=== PATIENT | male | born 1975 | race Caucasian/White ===

== ENCOUNTER 2018-09-30 14:45 | Inpatient (IN) | payer OTHER ==
[~2018-09-30] VITALS: Ht 182.9 cm; Wt 84.5 kg
[2018-09-30] MEDS ORDERED: GABA600 PO (15:01)
[2018-09-30] MEDS ORDERED: B-1100 MG PO (15:04)
[2018-09-30] MEDS ORDERED: THERA1 EACH PO (15:05)
[2018-09-30] MEDS ORDERED: MELATONIN5 M1 (15:06)
[2018-09-30 15:21] LABS: BASOPHILS ABSOLUTE AUTO 0.01 K/mm3 (0.00-0.23); BASOPHILS PERCENT AUTO 0 % (0-2); EOSINOPHILS ABSOLUTE AUTO 0.02 K/mm3 (0.00-0.68); EOSINOPHILS PERCENT AUTO 1 % (0-6); Hematocrit 29.4 % (37.0-53.0); IMMATURE GRAN PERCENT AUTO 0 % (0-1); LYMPHOCYTES ABSOLUTE AUTO 0.43 K/mm3 (0.84-5.20); LYMPHOCYTES PERCENT AUTO 18 % (21-46); MONOCYTES ABSOLUTE AUTO 0.45 K/mm3 (0.16-1.47); MONOCYTES PERCENT AUTO 18 % (4-13); Mean Corpuscular HGB 29.9 pg (26.0-34.0); Mean Corpuscular HGB Conc 30.6 g/dL (31.5-36.5); Mean Corpuscular Volume 98 fL (80-100); NEUTROPHILS ABSOLUTE AUTO 1.53 K/mm3 (1.96-9.15); NEUTROPHILS PERCENT AUTO 63 % (41-73); RDW Coefficient Variation 22.6 % (11.7-14.2); RDW Standard Deviation 82.8 fL (35.1-46.3); Red Blood Cell Count 3.01 M/mm3 (4.30-5.90); White Blood Cell Count 2.44 K/mm3 (4.00-11.30)
[2018-09-30 15:35] LABS: Platelet Count 36 K/mm3 (150-400)
[2018-09-30 15:44] LABS: International Normalized Ratio 1.58; Prothrombin Time Results 16.1 Sec (9.7-11.5)
[2018-09-30 15:45] LABS: Alanine Aminotransfer (ALT/SGP 39 U/L (12-78); Albumin, Blood 2.5 g/dL (3.4-5.0); Albumin/Globulin Ratio 0.5 (0.8-1.8); Alk Phos 110 U/L (50-136); Anion Gap 4 mmol/L (6-16); Aspartate Aminotrans (AST/SGOT 86 U/L (12-37); Bilirubin, Total 3.2 mg/dL (0.1-1.0); Blood Urea Nitrogen 9 mg/dL (8-24); Bun/Creatinine Ratio 15.1 (12.0-20.0); CO2, Blood 27 mmol/L (21-32); Calcium, Blood 8.6 mg/dL (8.5-10.1); Chloride, Blood 105 mmol/L (98-108); Globulin, Blood 5.3 g/dL (2.2-4.0); Glomerular Filtration Rate >60 (60-); Glucose, Blood 125 mg/dL (70-99); Sodium, Blood 136 mmol/L (136-145); Total Protein, Blood 7.8 g/dL (6.4-8.2)
[2018-09-30 16:53] LABS: Source, Urine Clean Catch
[2018-09-30 16:57] LABS: Appearance, Urine Clear (Clear); Bilirubin, Urine Neg (Neg); Blood, Urine Neg (Neg); Color, Urine Yellow (P-Yellow); Glucose Qualitative, Urine Neg (Neg); Ketones, Urine Neg (Neg); Leukocyte Esterase, Urine Neg (Neg); Nitrite, Urine Neg (Neg); Protein, Urine Neg (Neg); Specific Gravity, Urine 1.015 (1.003-1.022); Urobilinogen, Urine NORM (Normal)
[2018-09-30] MEDS ORDERED: OMEPRAZOLE MAGN20 MG PO (18:02)
[2018-09-30] MEDS ORDERED: FOLI1 PO (18:02)
[2018-09-30] MEDS ORDERED: MAGOXI400 PO (18:12)
[2018-09-30 19:20] LABS: BASOPHILS ABSOLUTE AUTO 0.01 K/mm3 (0.00-0.23); BASOPHILS PERCENT AUTO 0 % (0-2); EOSINOPHILS ABSOLUTE AUTO 0.02 K/mm3 (0.00-0.68); EOSINOPHILS PERCENT AUTO 1 % (0-6); Hematocrit 30.2 % (37.0-53.0); Hemoglobin 9.1 g/dL (13.5-17.5); IMMATURE GRAN PERCENT AUTO 0 % (0-1); LYMPHOCYTES ABSOLUTE AUTO 0.44 K/mm3 (0.84-5.20); LYMPHOCYTES PERCENT AUTO 18 % (21-46); MONOCYTES ABSOLUTE AUTO 0.43 K/mm3 (0.16-1.47); MONOCYTES PERCENT AUTO 17 % (4-13); Mean Corpuscular HGB Conc 30.1 g/dL (31.5-36.5); Mean Corpuscular Volume 100 fL (80-100); NEUTROPHILS ABSOLUTE AUTO 1.58 K/mm3 (1.96-9.15); NEUTROPHILS PERCENT AUTO 64 % (41-73); RDW Coefficient Variation 22.6 % (11.7-14.2); RDW Standard Deviation 83.2 fL (35.1-46.3); Red Blood Cell Count 3.03 M/mm3 (4.30-5.90); White Blood Cell Count 2.48 K/mm3 (4.00-11.30)
[2018-09-30 19:34] LABS: Platelet Count 38 K/mm3 (150-400)
--- NOTE | 2018-09-30 21:54 | NUR ---
ADMISSION: PATIENT ARRIVED TO ICU2 AT APPROX 1905 VIA GURNEY FROM ER. PATIENT ALERT TO TIME BUT NOT PLACE, SLURRED SPEECH AND TRYING TO GET OOB. PATIENT ABLE TO PARTICIPATE WITH ADMISSION BUT CONFUSION INCREASING THROUGHOUT PROCESS. ADMISSION AND ASSESSMENT COMPLETED, PATIENT ORIENTED TO ROOM, CALL LIGHT AND HOSPITAL POLICIES.
--- NOTE | 2018-09-30 21:57 | NUR ---
WITHDRAWL: 1950 PATIENT NOW EXPERIENCING INCREASING CONFUSION, STATING HE IS IN [place] AND THEN GRANTS PASS, PATIENT UNABLE TO DO SERIAL ADDITION AND AGGITATION AND ANXIETY INCREASING. SEE ESCALATING BEHAVIOR ON CIWA SCALE. PATIENT CONTINUALLY TRYING TO GET OOB. APPROX 2100 PATIENT NOW CUSING AND SLURRING WORDS, HIT STAFF IN THE FACE WITH KNUCKLES, VERY ANXIOUS AND AGGITATED BUT UNAWARE OF ACTIONS. MD NOTIFIED, ORDERS RECIEVED, RESTRAINTS INITIATED, MEDICATIONS ADMINISTERED PER MD ORDERS. MONITORING VS, AND BEHAVIOR VERY CLOSELY AND FREQUENTLY ([id number]), SEE RESTRAINT AND VS LOGS.
[2018-10-01 03:55] LABS: International Normalized Ratio 1.61; Prothrombin Time Results 16.3 Sec (9.7-11.5)
[2018-10-01 04:04] LABS: Alanine Aminotransfer (ALT/SGP 38 U/L (12-78); Albumin, Blood 2.6 g/dL (3.4-5.0); Albumin/Globulin Ratio 0.5 (0.8-1.8); Alk Phos 113 U/L (50-136); Anion Gap 7 mmol/L (6-16); Aspartate Aminotrans (AST/SGOT 83 U/L (12-37); Bilirubin, Direct 2.6 mg/dL (0.0-0.3); Bilirubin, Indirect 1.3 mg/dL (0.1-0.7); Bilirubin, Total 3.9 mg/dL (0.1-1.0); Blood Urea Nitrogen 8 mg/dL (8-24); CO2, Blood 24 mmol/L (21-32); Calcium, Blood 8.7 mg/dL (8.5-10.1); Chloride, Blood 114 mmol/L (98-108); Creatinine, Blood 0.47 mg/dL (0.60-1.20); Globulin, Blood 5.3 g/dL (2.2-4.0); Glomerular Filtration Rate >60 (60-); Glucose, Blood 139 mg/dL (70-99); Magnesium, Blood 2.1 mg/dL (1.6-2.4); Phosphorus, Blood 4.4 mg/dL (2.5-4.9); Potassium, Blood 3.8 mmol/L (3.5-5.5); Sodium, Blood 145 mmol/L (136-145); Total Protein, Blood 7.9 g/dL (6.4-8.2)
--- NOTE | 2018-10-01 05:51 | NUR ---
SHIFT SUMMARY: PATIENT ON PREXEDEX AT 0.5 WITH STABLE VS, ORAL AND SKIN CARE DONE, EYE CARE AND LINEN CHANGE COMPLETED. PATIENT HAS INTERMITTENT EPISODES OF ANGRY OUTBURSTS AND AGGITATION IN BETWEEN SLEEPING. BED LOW AND LOCKED WITH EXIT ALARM ON, 1L NC ADDED FOR PATIENT D/T SOME APNEA LIKE EPISODES WHILE SLEEPING. O2 MAINTAINED ABOVE 90%. CALL LIGHT WITHIN REACH, MONITORING CLOSELY.
--- NOTE | 2018-10-01 07:15 | NUR ---
RECEIVED REPORT FROM PENNIE BEAR, AND ASSUMED CARE OF PT.
--- NOTE | 2018-10-01 08:00 | NUR ---
DR. GOLD AT BEDSIDE FOR EVALUATION.
--- NOTE | 2018-10-01 08:48 | NUR ---
NURSING SUMMARY SLEEPY, WAKES EASILY TO VOICE, CONFUSED, MUMBLING, CUSSING, TREMORS, ATAXIA, AUDITORY AND VISUAL HALLUCINATIONS, PULLING AT THE BILATERAL WRIST RESTRAINTS, CIWA = 12, DOES NOT FOLLOW DIRECTIONS, UNABLE TO CHEW/SWALLOW FOOD, HELD FIRST BITE IN MOUTH, REMOVED THE FOOD AND WILL REASSESS SWALLOWING WHEN PT MORE AWAKE/ALERT. PRECEDEX DRIP INFUSING AT 0.5 MCG/KG/HR. SB - SR ON MONITOR, HR PRIMARILY IN THE 50'S AND 60'S, INCREASES TO 110'S WITH AGITATION AND ATTEMPTS TO PULL OFF THE RESTRAINTS. BP'S WNL. LUNGS CLEAR, DIMINISHED AT THE BASES, 1L 02 NC, SATS 94-99%. SEIZURE PADS IN PLACE. PLACED SCD'S ON PT. ABDOMEN WITH MILD DISTENTION, SOFT, NON-TENDER, HYPERACTIVE BOWEL SOUNDS IN ALL FOUR QUADS. PRIEST IN PLACE DRAINING CLIVE URINE. PROVIDED MOUTH CARE. DR. GOLD CAME TO SEE PT, ADVISED OF ELEVATED AMMONIA AND LOW PLATELETS. BILATERAL AC IV SITES INFUSING PRECEDEX AND NS AT TKO.
--- NOTE | 2018-10-01 13:45 | NUR ---
PRECEDEX TURNED DOWN TO 0.4 MCG/KG/HR AROUND 1100. AT THIS TIME, PT YELLING/CUSSING, ATTEMPTING TO BREAK OUT OF THE SOFT WRIST RESTRAINTS. TURNED PRECEDEX UP TO 0.5 MCG/KG/HR.
[2018-10-01 18:37] LABS: BASOPHILS ABSOLUTE AUTO 0.01 K/mm3 (0.00-0.23); BASOPHILS PERCENT AUTO 0 % (0-2); EOSINOPHILS ABSOLUTE AUTO 0.02 K/mm3 (0.00-0.68); EOSINOPHILS PERCENT AUTO 1 % (0-6); Hematocrit 31.5 % (37.0-53.0); Hemoglobin 9.6 g/dL (13.5-17.5); IMMATURE GRAN ABSOLUTE AUTO 0.01 K/mm3 (0.00-0.10); IMMATURE GRAN PERCENT AUTO 0 % (0-1); LYMPHOCYTES ABSOLUTE AUTO 0.26 K/mm3 (0.84-5.20); LYMPHOCYTES PERCENT AUTO 10 % (21-46); MONOCYTES ABSOLUTE AUTO 0.39 K/mm3 (0.16-1.47); MONOCYTES PERCENT AUTO 14 % (4-13); Mean Corpuscular HGB 30.3 pg (26.0-34.0); Mean Corpuscular HGB Conc 30.5 g/dL (31.5-36.5); Mean Corpuscular Volume 99 fL (80-100); NEUTROPHILS ABSOLUTE AUTO 2.05 K/mm3 (1.96-9.15); NEUTROPHILS PERCENT AUTO 75 % (41-73); RDW Coefficient Variation 21.5 % (11.7-14.2); RDW Standard Deviation 79.3 fL (35.1-46.3); Red Blood Cell Count 3.17 M/mm3 (4.30-5.90); White Blood Cell Count 2.74 K/mm3 (4.00-11.30)
--- NOTE | 2018-10-01 18:42 | NUR ---
NURSING SUMMARY SLEEPING, WAKES EASILY TO VOICE, CONFUSED, MUMBLES/CUSSES/YELLS OUT/ATTEMPTS TO PULL OUT OF THE RESTRAINTS, FOLLOWS COMMANDS AT TIMES BUT YELLS AT STAFF WHEN INSTRUCTING PT THAT HE IS HERE DUE TO ALCOHOL WITHDRAWALS. SOFT BILATERAL WRIST RESTRAINTS IN PLACE. PRECEDEX DRIP INFUSING AT 0.5 MCG/KG/HR = 10.8 CC/HR. SB - SR ON MONITOR, HR 50'S AND 60'S. LUNGS CLEAR, DIMINISHED AT THE BASES, 1L O2 NC, SATS 92-98%. PRIEST IN PLACE. ATTEMPTED TO FEED PT AT BREAKFAST AND AT LUNCH BUT DOES NOT ATTEMPT TO SWALLOW SMALL BITES OF FOOD PLACED IN HIS MOUTH, REMOVED FOOD, PROVIDED MOUTH CARE, CONSULTED BIOMASS TECHNICIAN. PLATLET COUNT 35 AT THIS TIME, DR. WAGNER AWARE. BILATER ARM IV SITES INFUSING PRECEDEX AND NS AT TKO.
[2018-10-01 18:45] LABS: Platelet Count 35 K/mm3 (150-400)
--- NOTE | 2018-10-01 19:30 | NUR ---
ASSUMED CARE OF PT FROM DAY SHIFT RN. PT IN ROOM RESTING COMFORTABLTY AT THIS TIME. PER DAY SHIFT PT WAS PLACED ON PRECIDEX GTT AND PLACED IN SOFT BILAT WRIST RESTRAINTS D/T CONTUNIED CONFUSION, HALLUCINATIONS, CONFUSION AND AGGITATION. PER DAY SHIFT PT WAS ATTEMPTING TO SWING AT STAFF MEMBERS DURING THE DAY. PT NEEDS CONSTANT REDIRECTION AND IS ONLY ORIENTED TO SELF. RESP EVEN UNLBAORED ON 1L O2 VIA NC SATS >92%. APPEARS TO NOT BE IN PAIN AT THIS TIME. PER DAY SHIFT CIWA REMAINED BETWEEN 12-14 DURING DAY. BILAT WRIST RESTRAINTS CHECKED WITH DAY SHIFT RN ALONG W/ PRECIDEX GTT. CALL LIGHT IS INR EACH OF PT. BED IN LOWEST POSITION.
[2018-10-02 04:02] LABS: Anion Gap 8 mmol/L (6-16); Blood Urea Nitrogen 10 mg/dL (8-24); Bun/Creatinine Ratio 19.9 (12.0-20.0); CO2, Blood 24 mmol/L (21-32); Calcium, Blood 8.5 mg/dL (8.5-10.1); Chloride, Blood 111 mmol/L (98-108); Glomerular Filtration Rate >60 (60-); Glucose, Blood 115 mg/dL (70-99); Magnesium, Blood 1.9 mg/dL (1.6-2.4); Phosphorus, Blood 3.8 mg/dL (2.5-4.9); Potassium, Blood 3.8 mmol/L (3.5-5.5); Sodium, Blood 143 mmol/L (136-145)
--- NOTE | 2018-10-02 06:01 | NUR ---
SHIFT SUMMARY PT IS SLEEPING IN ROOM COMFORTABLY AT THIS TIME. PT BECAME MORE AGGITATED T/O NIGHT. REQUIRED MULTIPLE DOSES OF ATIVAN TO CONTROL AGGITATION AND WITHDRAWAL SYMPTOMS. PT REMAINS NPO AT THIS TIME UNTIL SPEECH THERAPY CAN REEVALUATE SWALLOW REFLEX. PT CONTINUES TO HAVE DIFFICULTY WITH SWALLOWING. PT ONLY ABLE TO TOLERATE ORAL SWABS. BILAT WRIST RESTRAINTS REMAIN IN PLACE. PT CONTINUES TO ATTEMPT TO GET OUT OF BED AND PULLS AT TUBES AND WIRES, CONFUSION CONTINUES AND PT BECOMES AGGITATED WHEN AWAKE, CURSING AT STAFF. PRECIDEX GTT INF IN RFA, W/ NS AT TKO IN DORINDA. RESP EVEN UNLABORED ON 1L NC W/ SATS >95%. HR CONTINUES TO BE SB 50'S-60'S WHICH IS PT BASELINE. PRIEST CATH IN PLACE DRAINING CLIVE URINE. PT DENIED PAIN T/O NIGHT. SPEECH CONTINUES TO BE SLURRED AND HARD TO UNDERSTAND. CALL LIGHT IS IN REACH OF PT. BED ALARM IS ON. BED IN LOW POSITION.
--- NOTE | 2018-10-02 12:00 | NUR ---
NURSING ICU DAYSHIFT: Assumed care of pt at approx 0700. Disoriented/confused, impulsive and agitated at times with multiple attempts to exit bed, pulls at and removes lines, curses at staff, difficult to redirect while awake. Jaundiced, scattered bruising noted, diaphoretic w/beads of sweat noted on forehead. CIWA >15 at this time. Soft b/l wrist restraints and vest in place. Cardiac monitoring in place, SB, BP stable, no noted edema. Respiratory status stable w/O2 sat upper 90's, mild desaturation noted during sleep, respirations even and unlabored. Abd SNT, BT+, FC w/stat lock present and draining well. PIV x2, NS TKO, banana bag infusing as ordered, precedex gtt infusing at 0.5 mcg/kg/min. Continue to maintain Q2 repositioning schedule to promote skin health and pressure ulcer prevention. Assistance w/ADL's required. Seen by account installer, plan to initiate PPN today. No s/s of acute distress, seen by PMD, new d/o received. Cont to monitor for any changes.
--- NOTE | 2018-10-02 17:03 | NUR ---
NURSING ICU DAYSHIFT SUMMARY: No significant changes noted t/o the shift. Intermittently cooperative w/care allowing personal/oral care to be completed, rests comfortably at times at, occassionally will make a fist, pull at lines, and yell at staff. Precedex gtt continues to infuse at 0.5 mcg/kg/hr, pt tolerating well. CIWA 15-20 depending on pt activity, reamins confused, diaphoretic, c/o light/sound sensitivity. No s/s of acute distress at this time. PPN started as per d/o. Frequent rounding and repositioning completed, cont to monitor until rpt is given to NOC RN.
[2018-10-02 18:17] LABS: BASOPHILS ABSOLUTE AUTO 0.02 K/mm3 (0.00-0.23); BASOPHILS PERCENT AUTO 1 % (0-2); EOSINOPHILS ABSOLUTE AUTO 0.01 K/mm3 (0.00-0.68); EOSINOPHILS PERCENT AUTO 0 % (0-6); Hematocrit 30.6 % (37.0-53.0); Hemoglobin 9.5 g/dL (13.5-17.5); IMMATURE GRAN ABSOLUTE AUTO 0.03 K/mm3 (0.00-0.10); IMMATURE GRAN PERCENT AUTO 1 % (0-1); LYMPHOCYTES ABSOLUTE AUTO 0.46 K/mm3 (0.84-5.20); LYMPHOCYTES PERCENT AUTO 18 % (21-46); MONOCYTES ABSOLUTE AUTO 0.36 K/mm3 (0.16-1.47); MONOCYTES PERCENT AUTO 14 % (4-13); Mean Corpuscular HGB 30.7 pg (26.0-34.0); Mean Corpuscular Volume 99 fL (80-100); NEUTROPHILS ABSOLUTE AUTO 1.74 K/mm3 (1.96-9.15); NEUTROPHILS PERCENT AUTO 66 % (41-73); RDW Coefficient Variation 21.3 % (11.7-14.2); RDW Standard Deviation 78.2 fL (35.1-46.3); Red Blood Cell Count 3.09 M/mm3 (4.30-5.90); White Blood Cell Count 2.62 K/mm3 (4.00-11.30)
[2018-10-02 18:22] LABS: Mean Platelet Volume 10.7 fL (9.1-12.4)
[2018-10-02 18:25] LABS: Platelet Count 36 K/mm3 (150-400)
--- NOTE | 2018-10-02 22:00 | NUR ---
ATTEMPTED LACTULOSE ENEMA PROCEDURE WAS EXPLAINED SEVERAL TIMES TO PT ABOUT NEED FOR MEDICATION TO LOWER PT'S AMMONIA LEVELS. PT WAS VERY VERBALLY AGGITATED ABOUT ENEMA PROCEDURE. PT VERBALLY ABUSIVE TO STAFF ABOUT NOT WANTING ENEMA. PT AGAIN REFUSING ENEMA AND PULLING AT RESTRAINTS WITH HANDS FISTED. PT CURSING AT STAFF AT THIS TIME. PT IS ALERT TO PLACE AND EVENT. KNOWS HE IS IN THE HOSPITAL IN [place] AND IS ADAMENTLY REFUSING LACTULOSE ENEMA DESPITE EDUCATION. ENEMA HELD AT THIS TIME. SENIOR SALES COMPENSATION ANALYST NOTIFIED WELL.
[2018-10-03 03:49] LABS: Alanine Aminotransfer (ALT/SGP 43 U/L (12-78); Albumin, Blood 2.4 g/dL (3.4-5.0); Albumin/Globulin Ratio 0.5 (0.8-1.8); Alk Phos 106 U/L (50-136); Anion Gap 4 mmol/L (6-16); Aspartate Aminotrans (AST/SGOT 86 U/L (12-37); Bilirubin, Total 2.5 mg/dL (0.1-1.0); Blood Urea Nitrogen 8 mg/dL (8-24); Bun/Creatinine Ratio 17.9 (12.0-20.0); CO2, Blood 27 mmol/L (21-32); Calcium, Blood 8.2 mg/dL (8.5-10.1); Chloride, Blood 108 mmol/L (98-108); Creatinine, Blood 0.45 mg/dL (0.60-1.20); Globulin, Blood 5.1 g/dL (2.2-4.0); Glomerular Filtration Rate >60 (60-); Glucose, Blood 118 mg/dL (70-99); Magnesium, Blood 1.8 mg/dL (1.6-2.4); Phosphorus, Blood 3.6 mg/dL (2.5-4.9); Potassium, Blood 3.8 mmol/L (3.5-5.5); Sodium, Blood 139 mmol/L (136-145); Total Protein, Blood 7.5 g/dL (6.4-8.2); Triglycerides 53 mg/dL (30-160)
--- NOTE | 2018-10-03 06:14 | NUR ---
SHIFT SUMMARY PT IS SLEEPING IN ROOM COMFORTABLY AT THIS TIME. NO ACUTE CHANGES IN STATUS T/O NIGHT. PT REMAINED CONFUSED AND AGGITATED AT TIMES T/O NIGHT. CIWA SCORES FROM, 12-14. RESP EVEN UNLBAORED ONR A W/ SATS >95%. PT DENIED PAIN T/O NIGHT. PT ATTEMPTED TO PULL AT CATHETER MULTIPLE TIMES T/O NIGHT AND BROKE THE STAT LOCK KNOX. NEW STAT LOCK WAS REPLACED AND BILAT WRISTS RESTRAINTS WERE RECHECKED FOR ENSURE PT WAS UNLABLE TO PULL AT CATHETER FURTHER. PT ALSO IN ROMEO VEST D/T CONTINUED EFFORTS TO GET OUT OF BED. PT ROM AND SKIN WAS ASSESSED Q2HRS, ALL WNL. PRECIDEX GTT INFUSING IN RFA, AND PPN INFUSING IN DORINDA. BOTH PIV'S WNL. CALL LIGHT IS WITHIN REACH OF THE PT. BED ALARM ON FOR SAFETY.
--- NOTE | 2018-10-03 08:06 | NUR ---
RECEIVED REPORT AND ASSUMED CARE OF PATIENT. HE IS SLEEPING AT THE TIME OF REPORT. PT O2 SAT >95% ON RA. PRECEDEX RUNNING AT 0.5 MCG/KG/HR, TPN RUNNING AT 96 M/HR. PT HAS ROMEO AND SOFT WRIST RESTRAINTS IN PLACE AT THIS TIME. PRIEST IN PLACE PATENT AND DRAINING CLEAR YELLOW URINE. WILL CONTINUE TO MONITOR AND FOLLOW ORDERS.
--- NOTE | 2018-10-03 08:08 | NUR ---
IMAGING AT BEDSIDE TO COMPLETE ABDOMEN ULTRASOUND.
--- NOTE | 2018-10-03 17:43 | NUR ---
PT AGITATION HAS BEEN OFF AND ON THROUGHOUT THE SHIFT. OVERALL, PATIENT IS QUIET AND RESTING, HOWEVER WHEN HE AWAKES HE IS AGITATED AND ANGRY. WHEN PT AWOKE DURING PPN SET UP HE IS AGITATED AND CURSES WHEN I EXPLAIN THAT WE NEED TO DO AN ENEMA IN A WHILE. PT IS PULLING AT RESTRAINTS AND IRRITATED AT THIS TIME. WILL CONTINUE TO ASSES.
--- NOTE | 2018-10-03 18:35 | NUR ---
PT HAD A GOOD SHIFT, HE WAS AGITATED AND IRRITABLE WHEN HE AWOKE, HOWEVER HE WAS NOT COMBATIVE TODAY. PT HAD MOMENTS OF LUCIDITY WHEN HE WAS SPEAKING WITH THIS RN. HE STATED THAT HE WAS DETOXING BECAUSE HE WANTED TO. KELSEA RN CHECKED ON PATIENT TODAY VIA TELEPHONE. PT CONTINUES ON 0.5 MCG/KG/HR PRECEDEX AND 105 ML/HR OF PPN. PT HAS PATENT PRIEST IN PLACE, DRAINING CLEAR YELLOW URINE. SOFT WRIST RESTRAINTS IN PLACE B/L WELL ROMEO VEST. PT IS RE-DIRECTABLE WHEN HE IS DIS-ORIENTED, USED THERAPEUTIC COMMUNICATION THROUGHOUT THE DAY WITH GOOD RESULTS. BED IS LOCKED AND LOW, HEAD OF BED AT 30 DEGREES, SCDS IN PLACE. WILL CONTINUE TO MONITOR AND GIVE REPORT TO NOC RN.
--- NOTE | 2018-10-03 21:14 | NUR ---
PM NOTE. ASSUMED CARE OF PT APROX 1900, PT IS MORE A&O THAN PREVIOUS DAY PER REPORT, PT ABLE TO STATE THAT HE IS IN THE HOSPTIAL, WHAT TOWN, UNABLE TO STATE THE DAY. PT BECOMES FRUSTRATED VERY QUICKLY IF HE HAS TO REPEAT HIMSELF, HOWEVER, PT IS SLURRING HIS WORDS AND SPEAKING SOFTLY. PT REQUESTED A DRINK OF WATER, PT APPEARED TO BE ABLE TO SWALLOW AND WAS FOLLOWING DIRECTIONS, BED SIDE SWALLOW EVAL WAS DONE, PT PASSED AND WAS ABLE TO DRINK WATER W/O ANY CHOKING, COUGHING OR WET SOUNDING VOICE. MONITORS INTACT, NSR/SB IN THE 50'S-60'S PT'S BP 119/75. PT IS ON A PRECEDEX GTT AT 0.5MCG/KG/HR RUNNING AT 10.8 ML/HR. PT HAS ALSO BEEN NEEDING ATIVAN PRN WELL. L/S CLEAR T/O, PT IS ON RA AT 96%. BT PRESENT AND HYPOACTIVE, ABD IS SLIGHTLY DISTENDED/FIRM, NONTENDER TO PALP. PT IS SLIGHTLY JAUNDICED. PT IS IN BILATERAL SOFT WRIST RESTRAINS AND A ROMEO VEST. CALL LIGHT IN REACH, BED IS LOCKED AND LOW, WILL MONITOR.
[2018-10-04 03:26] LABS: BASOPHILS ABSOLUTE AUTO 0.01 K/mm3 (0.00-0.23); BASOPHILS PERCENT AUTO 0 % (0-2); EOSINOPHILS ABSOLUTE AUTO 0.02 K/mm3 (0.00-0.68); EOSINOPHILS PERCENT AUTO 1 % (0-6); Hematocrit 32.5 % (37.0-53.0); Hemoglobin 9.9 g/dL (13.5-17.5); IMMATURE GRAN ABSOLUTE AUTO 0.01 K/mm3 (0.00-0.10); IMMATURE GRAN PERCENT AUTO 0 % (0-1); LYMPHOCYTES ABSOLUTE AUTO 0.55 K/mm3 (0.84-5.20); LYMPHOCYTES PERCENT AUTO 19 % (21-46); MONOCYTES ABSOLUTE AUTO 0.49 K/mm3 (0.16-1.47); MONOCYTES PERCENT AUTO 17 % (4-13); Mean Corpuscular HGB 30.6 pg (26.0-34.0); Mean Corpuscular HGB Conc 30.5 g/dL (31.5-36.5); Mean Corpuscular Volume 100 fL (80-100); Mean Platelet Volume 10.4 fL (9.1-12.4); NEUTROPHILS ABSOLUTE AUTO 1.77 K/mm3 (1.96-9.15); NEUTROPHILS PERCENT AUTO 62 % (41-73); RDW Coefficient Variation 21.9 % (11.7-14.2); RDW Standard Deviation 81.2 fL (35.1-46.3); Red Blood Cell Count 3.24 M/mm3 (4.30-5.90); White Blood Cell Count 2.85 K/mm3 (4.00-11.30)
[2018-10-04 03:30] LABS: Platelet Count 46 K/mm3 (150-400)
[2018-10-04 03:40] LABS: Albumin, Blood 2.3 g/dL (3.4-5.0); Anion Gap 3 mmol/L (6-16); Blood Urea Nitrogen 10 mg/dL (8-24); Bun/Creatinine Ratio 21.4 (12.0-20.0); CO2, Blood 27 mmol/L (21-32); Calcium, Blood 8.4 mg/dL (8.5-10.1); Chloride, Blood 108 mmol/L (98-108); Creatinine, Blood 0.47 mg/dL (0.60-1.20); Glomerular Filtration Rate >60 (60-); Glucose, Blood 112 mg/dL (70-99); Phosphorus, Blood 3.9 mg/dL (2.5-4.9); Potassium, Blood 4.1 mmol/L (3.5-5.5); Sodium, Blood 138 mmol/L (136-145)
--- NOTE | 2018-10-04 06:22 | NUR ---
SHIFT SUMMARY. NO ACUTE CHANGES NOTED THIS SHIFT. PT'S VS HAVE BEEN STABLE. AT TIMES PT HAS BEEN VERY AGITATED, CURSING AND THREATENING. AT OTHER TIMES PT HAS BEEN COOPERATIVE AND PLEASENT. SWALLOW EVAL WAS DONE AT BEDSIDE BY THIS RN, WHEN PT IS AWAKE AND ALERT HE IS ABLE TO SWALLOW THIN LIQUIDS W/O ANY ISSUE. PT WAS ABLE TO TAKE PO LIBRIUM WITH NO ISSUE. PRECEDEX GTT HAS BEEN TITRATED FROM 0.5 MCG/KG/HR TO 0.2 MCG/KG/HR AND HAS TOLERATED IT WELL AT THIS TIME. PT'S PRIEST IS INTACT AND DRAINING TO GRAVITY, PER REPORT PT HAS PULLED ON IT SEVERAL TIMES DURING DAY SHIFT, URINE IS CLEAR CLIVE COLOR. PT'S SPEECH MUMBLED AND QUIET, PT BECOMES VERY FRUSTRATED WHEN HE IS ASKED TO REPEAT HIMSELF MULTIPLE TIMES. NO CARDIAC EVENTS NOTED ON THE MONITOR. CALL LIGHT IN REACH, BED IS LOCKED AND LOW WILL CONTINUE TO MONITOR UNTI REPORT IS GIVEN TO ONCOMING RN.
--- NOTE | 2018-10-04 07:20 | NUR ---
RECEIVED REPORT FROM PENNIE BANDA, AND ASSUMED CARE OF PT.
--- NOTE | 2018-10-04 14:12 | NUR ---
NURSING SUMMARY SLEEPY THIS MORNING, WOKE EASLY TO VOICE, SLOW VERBAL RESPONSE, MUMBLES AT TIMES, ORIENTED TO SELF/LOCATION/REASONF FOR ADMISSION, FOLLOWING COMMANDS, INSTRUCTED RE: READINESS TO REMOVE THE BILATERAL WRIST RESTRAINTS AND USE OF THE CALL LIGHT SYSTEM, VERBALIZED THAT HE WILL NOT ATTEMPT TO GET OUT OF BED WITHOUT ASSISTANCE AND WILL USE THE CALL LIGHT TO MAKE NEEDS KNOWN. REMOVED THE THE BILATERAL SOFT WRIST RESTRAINTS AROUND 0930, KEPT THE VEST RESTRAINT IN PLACE. PT HAS BEEN FOLLOWING COMMANDS. PRECEDEX DRIP STOPPED AT 1030. MEDICATING WITH LIBRIUM AND ATIVAN PRN. SR ON MONITOR, HR 60'S AND 70'S, LOW BLOOD PRESSURE AT 60'S/30'S AFTER SITTING IN THE BEDSIDE CHAIR FOR 1 HOUR, ASSISTED BACK TO BED AND GAVE A NS 500 ML BOLUS, BLOOD PRESSURE BACK UP TO NORMAL. WHILE PT WAS SITTING IN THE CHAIR, BEFORE BP'S DROPPED, ASSISTED TO BEDSIDE COMMODE FOR A LARGE/FIGUEROA/LIQUID STOOL, NOTED SMALL AMOUNT OF RECTAL BLEEDING, PT STATES HE HAS HEMERRHOIDS SOMETIMES. ASSISTED PT ONTO A BEDPAN FOR THE 2ND BM. PRIEST DISCONTINUED AT 1145, PT HAS VOIDED PER URINAL SINCE. PT ABLE TO EAT REGULAR DIET AND TAKE PO MEDICATIONS. WAS ABLE TO TAKE LACTULOSE TWICE TODAY SO FAR. LEFT UPPER ARM IV AND RIGHT FOREARM IV. PT WORKED WITH PHYSICAL THERAPY TODAY, WAS ABLE TO STAND AT BEDSIDE.
--- NOTE | 2018-10-04 15:13 | NUR ---
Spiritual care visit conducted. Patient is sitting up in bed and alert. Patient is slow in his speech and movement and difficult to understand. I helped patient find the channel he wanted to watch on television and get patient a sprite. I talk with patient about the process of recovery he is in and asked patient if I could pray for him. Patient agreed to prayer and voiced gratitiude for the prayer. I will continue to be available to patient.
--- NOTE | 2018-10-04 17:03 | NUR ---
NURSING SUMMARY UPDATE PT MORE ORIENTED THIS AFTERNOON, FOLLOWING DIRECTIONS, USING THE CALL LIGHT. RESTRAINTS REMOVED: BILATERAL SOFT WRIST RESTRAINTS REMOVED AT 1030 AND VEST RESTRAINT REMOVED AT 1600. PRECEDEX DISCONTINUED AT 0930. MEDICATING WITH LIBRIUM AND ATIVAN PRN. TOLERATING WELL. PATIENT WITH DIARRHEA MULTIPLE TIMES TODAY, ASKING FOR THE BEDPAN APPROPRIATELY, TAKING LACTULOSE. VOIDING PER URINAL. PT HAS NOT EXPERIENCED ANY MORE HYPOTENSION AND HAS NOT BEEN OUT OF BED SINCE HE WAS HYPOTENSIVE EARLIER IN THE SHIFT. PT FEEDING SELF AND EATING WELL. PT HAD A BEDBATH TODAY. CIWA = 8 - 11. [facility] CALLED TO CHECK ON PT, THEY STATED HE WOULD TYPICALLY HAVE BEEN DISCHARGED FROM [facility] TODAY IF HE STAYED THERE FOR THE DURATION AND THEY JUST WANTED AN UPDATE ON HOW HE WAS DOING.
--- NOTE | 2018-10-04 17:56 | NUR ---
RECTAL TUBE INSERTED. PT TOLERATED WELL.
--- NOTE | 2018-10-04 19:15 | NUR ---
ASSUMPTION OF CARE: Patient resting in bed, alert and oriented x3, confused to place. Speech is quiet and slightly slurred, pt slightly agitated due to rectal tube in place but overall is calm and cooperative with staff. Restraints not needed at this time, bed is in low position and bed alarm is on. VSS with heart rate 70-80's NSR, BP 105-120's systolic. Peripheral IV's x2 patent and intact, SL. Rectal tube in place draining yellow-brown liquid stool. CIWA of 6 at this time, will continue to monitor and medicate with PRN's as indicated in EMAR.
[2018-10-05 03:44] LABS: BASOPHILS ABSOLUTE AUTO 0.01 K/mm3 (0.00-0.23); BASOPHILS PERCENT AUTO 0 % (0-2); EOSINOPHILS ABSOLUTE AUTO 0.02 K/mm3 (0.00-0.68); EOSINOPHILS PERCENT AUTO 0 % (0-6); Hematocrit 30.7 % (37.0-53.0); Hemoglobin 9.3 g/dL (13.5-17.5); IMMATURE GRAN ABSOLUTE AUTO 0.02 K/mm3 (0.00-0.10); IMMATURE GRAN PERCENT AUTO 0 % (0-1); LYMPHOCYTES ABSOLUTE AUTO 0.79 K/mm3 (0.84-5.20); LYMPHOCYTES PERCENT AUTO 18 % (21-46); MONOCYTES PERCENT AUTO 18 % (4-13); Mean Corpuscular HGB 29.4 pg (26.0-34.0); Mean Corpuscular HGB Conc 30.3 g/dL (31.5-36.5); Mean Platelet Volume 9.9 fL (9.1-12.4); NEUTROPHILS ABSOLUTE AUTO 2.86 K/mm3 (1.96-9.15); NEUTROPHILS PERCENT AUTO 64 % (41-73); Platelet Count 53 K/mm3 (150-400); RDW Coefficient Variation 22.9 % (11.7-14.2); RDW Standard Deviation 82.5 fL (35.1-46.3); Red Blood Cell Count 3.16 M/mm3 (4.30-5.90)
[2018-10-05 03:48] LABS: Mean Corpuscular Volume 97 fL (80-100)
[2018-10-05 04:00] LABS: Albumin, Blood 2.3 g/dL (3.4-5.0); Anion Gap 8 mmol/L (6-16); Blood Urea Nitrogen 14 mg/dL (8-24); Bun/Creatinine Ratio 22.2 (12.0-20.0); CO2, Blood 21 mmol/L (21-32); Calcium, Blood 8.5 mg/dL (8.5-10.1); Chloride, Blood 109 mmol/L (98-108); Creatinine, Blood 0.63 mg/dL (0.60-1.20); Glomerular Filtration Rate >60 (60-); Glucose, Blood 94 mg/dL (70-99); Phosphorus, Blood 4.6 mg/dL (2.5-4.9); Potassium, Blood 4.1 mmol/L (3.5-5.5); Sodium, Blood 138 mmol/L (136-145)
--- NOTE | 2018-10-05 05:55 | NUR ---
SHIFT SUMMARY: Pt remains calm and cooperative, slept on/off throughout shift. PRN librium and ativan effective to manage withdrawal symptoms, CIWA 6-8 through shift. Remains oriented x3, made attempts to get out of bed without assistance, pt reeducated to use call light, bed alarm armed throughout shift. VSS, rectal tube became dislodged this shift, pt using urinal and bedpan with assistance.
--- NOTE | 2018-10-05 07:15 | NUR ---
RECEIVED REPORT FROM EPNNIE COOPER, AND ASSUMED CARE OF PT.
--- NOTE | 2018-10-05 07:40 | NUR ---
DR. CASTILLO AT BEDSIDE FOR EVALUATION.
--- NOTE | 2018-10-05 08:40 | NUR ---
SINUS TACHYCARDIA HR 130'S, BP 144/78, SITTING UP IN BEDSIDE CHAIR, ASYMPTOMATIC, CALLED DR. CASTILLO, NEW ORDER FOR NS AT 125 ML/HR. ASSISTED PT BACK TO BED.
--- NOTE | 2018-10-05 09:30 | NUR ---
NURSING SUMMARY AWAKE, LETHARGIC, TREMORS, DIFFICULTY WITH FINE MOTOR SKILLS SUCH PRESSING THE BUTTONS ON THE CALL LIGHT/TELEVISION CONTROLS, ORIENTED TO SELF/LOCATION/EVENT. SR ON MONITOR AND HR IN THE 90'S MOST OF THE TIME. HR INCREASED TO ST IN THE 130'S AFTER SITTING IN THE CHAIR FOR ABOUT 45 MINUTES. VSS, TEMP 98.5. LUNGS CLEAR, ROOM AIR. INCONTINENT OF URINE IN THE BED, PROVIDED PARTIAL BATH, AND ASSISTED PT TO THE BEDSIDE CHAIR IN PREPARATION FOR BREAKFAST. GAIT WEAK, TREMULOUS, USED GAIT BELT, ATTEMPTS TO SIT DOWN BEFORE HE IS IN FRONT OF THE CHAIR. ONCE IN CHAIR FOR BOUT 45 MINUTES, PT EXPERIENCED ST IN THE 130'S, ASYMPTOMATIC, CALLED DR. CASTILLO AND OBTAINED NEW ORDER FOR IVF AND ASSISTED PT BACK TO BED. REFUSED LACULOSE THIS AM. STATES "I JUST CAN'T SIT ON THAT THING AGAIN" REFERRING/POINTING TO THE BEDPAN. USING THE URINAL IS DIFFICULT FOR THE PT, WEAK AND TREMULOUS. FREQUENT REMINDERS/INSTRUCTIONS FOR USING THE CALL LIGHT AND TV CONTROLS. WILL PROVIDE FREQUENT CHECKS TO ASSURE NEEDS ARE MET.
--- NOTE | 2018-10-05 10:32 | NUR ---
PT IMPULSIVE, ATTEMPTS TO GET OUT OF BED OR TO THE SIDE OF THE BED WHEN HE NEEDS TO USE THE BATHROOM WITHOUT USING THE CALL LIGHT. FREQUENTLY REMINDERS TO USE THE CALL LIGHT. FORGETS. BED ALARM ENGAGED. CURTAINS OPEN FOR FULL VISUALIZATION BY STAFF.
--- NOTE | 2018-10-05 11:09 | NUR ---
PT IS FOLLOW DIRECTIONS AND SPEECH IS CLEARER. HE HAS USED THE CALL LIGHT TWICE TO ASK FOR HELP USING THE URINAL INSTRUCTED. BED ALARM ENGAGED AND WILL CONTINUE TO REINFORCE.
--- NOTE | 2018-10-05 14:40 | NUR ---
PT AWAKE, ALERT, CONVERSING, ANSWERING YES/NO QUESTIONS. PT ANSWERED "NO" WHEN ASKED IF HE WAS SUICIDAL. PT ANSWERED "YES" WHEN ASKED IF HE WAS SUICIDAL WHEN HE TOOK THE SEROQUEL. FOLLOWING DIRECTIONS, CALM, COOPERATIVE. ORDERED DIET.
--- NOTE | 2018-10-05 18:30 | NUR ---
NURSING SUMMARY ALERT, ORIENTED X3, CALM, PLEASANT, FOLLOWING DIRECTIONS, MILD TREMORS AND DIFFICULTY WITH FINE MOTOR SKILLS. USING THE CALL LIGHT APPROPRIATELY, DOES NOT ATTEMPT TO GET OUT OF BED WITHOUT HELP. SR ON THE MONITOR, HR 70'S AND 80'S, VSS. LUNGS CLEAR, ROOM AIR. HAD A SHOWER TODAY, SHAVED, USING LOTION FOR THE ECZEMA ON HIS FACE, BRUSING TEETH AT THIS TIME. AMBULATED AROUND THE ROOM TODAY. PHYSICAL THERAPY RECOMMENDED USING A WALKER FOR STABILITY, TREMULOUS WITH STANDING AND WALKING. TOLERATING REGULAR DIET, ATE AND DRANK ALOT TODAY. VOIDING PER URINAL. NS INFUSING AT 125 ML/HR. TWO IV'S ON LEFT ARM, NEW IV IN LEFT WRIST STARTED TODAY.
--- NOTE | 2018-10-05 19:20 | NUR ---
ASSUMED CARE BEDSIDE REPORT RECIEVED. PT IS LAYING IN BED, SOMNOLENT, BUT AROUSES TO VERBAL STIMULI. PT IS SLOW TO RESPOND AND SPEECH IS MUMBLED. PT IS ALERT TO SELF AND FOLLOWING DIRECTION. NOTABLE TREMORS AND WEAKNESS WITH MOVEMENT. PT ON ROOM AIR, VITAL SIGNS STABLE. NS INFUSING AT 125 ML/HR. WILL CONTINUE TO MONITOR.
[2018-10-06 03:20] LABS: BASOPHILS ABSOLUTE AUTO 0.02 K/mm3 (0.00-0.23); BASOPHILS PERCENT AUTO 1 % (0-2); EOSINOPHILS ABSOLUTE AUTO 0.04 K/mm3 (0.00-0.68); EOSINOPHILS PERCENT AUTO 2 % (0-6); Hematocrit 28.5 % (37.0-53.0); Hemoglobin 8.6 g/dL (13.5-17.5); IMMATURE GRAN PERCENT AUTO 0 % (0-1); LYMPHOCYTES ABSOLUTE AUTO 0.61 K/mm3 (0.84-5.20); LYMPHOCYTES PERCENT AUTO 23 % (21-46); MONOCYTES ABSOLUTE AUTO 0.53 K/mm3 (0.16-1.47); MONOCYTES PERCENT AUTO 20 % (4-13); Mean Corpuscular HGB Conc 30.2 g/dL (31.5-36.5); Mean Corpuscular Volume 99 fL (80-100); Mean Platelet Volume 9.7 fL (9.1-12.4); NEUTROPHILS ABSOLUTE AUTO 1.43 K/mm3 (1.96-9.15); NEUTROPHILS PERCENT AUTO 54 % (41-73); RDW Coefficient Variation 22.3 % (11.7-14.2); RDW Standard Deviation 83.1 fL (35.1-46.3); Red Blood Cell Count 2.87 M/mm3 (4.30-5.90); White Blood Cell Count 2.63 K/mm3 (4.00-11.30)
[2018-10-06 03:24] LABS: Platelet Count 45 K/mm3 (150-400)
[2018-10-06 03:36] LABS: Albumin, Blood 2.2 g/dL (3.4-5.0); Anion Gap 9 mmol/L (6-16); Blood Urea Nitrogen 8 mg/dL (8-24); Bun/Creatinine Ratio 14.5 (12.0-20.0); CO2, Blood 22 mmol/L (21-32); Calcium, Blood 7.9 mg/dL (8.5-10.1); Chloride, Blood 109 mmol/L (98-108); Creatinine, Blood 0.55 mg/dL (0.60-1.20); Glomerular Filtration Rate >60 (60-); Glucose, Blood 94 mg/dL (70-99); Phosphorus, Blood 2.8 mg/dL (2.5-4.9); Potassium, Blood 3.5 mmol/L (3.5-5.5); Sodium, Blood 140 mmol/L (136-145)
--- NOTE | 2018-10-06 06:08 | NUR ---
SHIFT SUMMARY PT HAS REMAINED ALERT AND ORIENTED TO SELF AND COOPERATIVE THROUGHOUT THE SHIFT. PT HAS BEEN IMPULSIVE AND HAS MADE MULTIPLE ATTEMPTS TO GET UP OUT OF BED. BED ALARM ON. PT REDIRECTED FREQUNTLY. PT HAS REMAINED WITH CIWA SCORES IN THE 9-14 RANGE AND MED WITH LIBRIUM PER EMAR PRN. PT WITH DIFFICULTY WITH FINE MOTOR SKILLS. PT UP TO TOILET WITH ASSISTANCE, WEAK AND UNSTEADY GAIT AT TIMES. PT VOIDING WELL AND LIQUID BM'S HAVE DECREASED IN FREQUENCY. VITAL SIGNS HAVE REMAINED STABLE. NS INFUSING AT 125 ML/HR. WILL CONTINUE TO MONITOR AND REPORT OFF TO ONCOMING RN.
--- NOTE | 2018-10-06 07:25 | NUR ---
Recieved report from Tariq CASPER. Patient supine in bed with HOB at 30 degress. He is on RA and sats in the mid to upper 90%'s. His speech is slow and garbled at times , but is able to communicate his needs. He is very tremulous and very poor fine motor skills. He uses urinal with with assist r/t tremors. He has 20ga IV in DORINDA dressing intact and site WNL's and is infusing NS at 125ml/hr. He is currently up using urinal with assist and will be in chair with tab alarm for breakfast. He follow directions and needs repeated reinforcment. He is cooperative with his care. He has bilateral SCD's to LE in place.
--- NOTE | 2018-10-06 09:51 | NUR ---
Patient up in bath chair and went to shower. He keeps asking about going home today, and reassuring that there is no order for discharge and he will be transferring to medical floor. VSS, see EHR. He continues with weakness and tremors.
--- NOTE | 2018-10-06 11:25 | NUR ---
Gave report to [facility] Med RN. All belonging, shoes, [facility] pants and shirt and jewelry in specimen cup. He was assisted to wheel chair and taken to room
--- NOTE | 2018-10-06 12:00 | NUR ---
PT ARRIVED TO ROOM VIA W/C AND SETTLED IN TO BED. REPORTS HES ANGRY ABOUT BEING TOLD HES NOT SAFE TO WALK BY HIMSELF WHEN HE IS JUST FINE. LUNCH ARRIVED FROM ICU AND HE ATE.
--- NOTE | 2018-10-06 18:45 | NUR ---
SHIFT SUMMARY PT HAS BEEN UP MULTIPLE TIMES SINCE ARRIVAL FROM ICU WITH BED ALARM ON. UNSTEADY ON FEET. DENIES BEING UNSTEADY DESPITE BUMPING AGAINST ITEMS IN ROOM WITH WALKING TO BATHROOM. DID WALK IN HALLWAY USING GAIT BELT AND WALKED TO END OF VILLARREAL AND BACK WITH 1 PERSON ASSIST. CALLED [employer] THIS AFTERNOON AND FOUND HIS BELONGINGS. PATIENT ADVOCATE IS TO PICK THEM UP TOMORROW AND BRING THEM IN THE MORNING. PT AWARE AND AGREEABLE. TREMORS THROUGH DAY.
--- NOTE | 2018-10-07 00:28 | NUR ---
2142 PT CONTINUALY TRYING TO GET OUT OF BED. BERY UNSTEADY ON HIS FEET AND A FALL RISK. OBTAINED ORDERS FOR ROMEO VEST. 0025 PT STILL TRYING TO GET UP AND OUT OF BED DESPITE ROMEO. HE STATES HE CANNOT SLEEP.
--- NOTE | 2018-10-07 03:44 | NUR ---
NOC SHIFT SUMMARY PT HAS BEEN VERY IMPULSTIVE THIS NGIHT. CONTINUALLY TRYING TO GET UP OUT OF BED. HE IS UNSTEADY ON HIS FEET. OBTAINED ORDER FOR ROMEO VEST @ 2142. HE HAS CONTINUED TO ATTEMPT TO GET UP AND PULLS AGAINST ROMEO VEST RIPPING IT. HAVE GIVEN ATIVAN MULTIPLE TIMES WITH SOME SMALL IMPROVEMENT IN IMPULSIVENESS. PT WILL FALL TO SLEEP FOR 10-15 MIN AND THEN SIT UP AGAIN. PT IS NOT AGRESSIVE AT THIS TIME. HE OFTEN STATES THAT HE IS PERFECTLY FINE ON HIS FEET. HIS GAIT IS UNSTEADY IN APPEARANCE. PT APPEARS TO BE ASLEEP AT THIS TIME BUT DOES MOVE AROUND IN BED. VSS. CIWA SCORES STABLE. CURRENTLY APPEARS IN NO ACUTE DISTRESS. ORIENTED TO SELF. WILL CONTINUE TO MONITOR.
[2018-10-07 05:22] LABS: BASOPHILS ABSOLUTE AUTO 0.02 K/mm3 (0.00-0.23); BASOPHILS PERCENT AUTO 1 % (0-2); EOSINOPHILS ABSOLUTE AUTO 0.02 K/mm3 (0.00-0.68); EOSINOPHILS PERCENT AUTO 1 % (0-6); Hematocrit 29.6 % (37.0-53.0); Hemoglobin 9.1 g/dL (13.5-17.5); IMMATURE GRAN ABSOLUTE AUTO 0.01 K/mm3 (0.00-0.10); IMMATURE GRAN PERCENT AUTO 0 % (0-1); LYMPHOCYTES ABSOLUTE AUTO 0.62 K/mm3 (0.84-5.20); LYMPHOCYTES PERCENT AUTO 28 % (21-46); MONOCYTES ABSOLUTE AUTO 0.51 K/mm3 (0.16-1.47); MONOCYTES PERCENT AUTO 23 % (4-13); Mean Corpuscular HGB 30.4 pg (26.0-34.0); Mean Corpuscular HGB Conc 30.7 g/dL (31.5-36.5); Mean Corpuscular Volume 99 fL (80-100); Mean Platelet Volume 11.2 fL (9.1-12.4); NEUTROPHILS ABSOLUTE AUTO 1.06 K/mm3 (1.96-9.15); NEUTROPHILS PERCENT AUTO 47 % (41-73); RDW Coefficient Variation 21.5 % (11.7-14.2); RDW Standard Deviation 78.9 fL (35.1-46.3); Red Blood Cell Count 2.99 M/mm3 (4.30-5.90); White Blood Cell Count 2.24 K/mm3 (4.00-11.30)
[2018-10-07 05:32] LABS: Platelet Count 41 K/mm3 (150-400)
[2018-10-07 05:46] LABS: Albumin, Blood 2.5 g/dL (3.4-5.0); Anion Gap 6 mmol/L (6-16); Blood Urea Nitrogen 8 mg/dL (8-24); CO2, Blood 25 mmol/L (21-32); Calcium, Blood 8.3 mg/dL (8.5-10.1); Chloride, Blood 110 mmol/L (98-108); Creatinine, Blood 0.57 mg/dL (0.60-1.20); Glomerular Filtration Rate >60 (60-); Glucose, Blood 95 mg/dL (70-99); Phosphorus, Blood 3.3 mg/dL (2.5-4.9); Potassium, Blood 3.6 mmol/L (3.5-5.5); Sodium, Blood 141 mmol/L (136-145)
--- NOTE | 2018-10-07 11:58 | NUR ---
PT PULLING AND CHEWING AT RESTRAINTS THIS MORNING. DIFFICULT TO REDIRECT. WOULD PUSH SELF TO FOOT OF BED AND HANG HIS FEET OVER. REMOVED RESTRAINTS AT 0930 AND ASSISTED PT TO BATHROOM. PT SAT ON SIDE OF BED AFTER AND SPOKE WITH ME ABOUT HAVING HIS HANDS TIED BEHIND HIS BACK AND SAYING HE GOT TIGHT UP TO THE BED WHEN HE WAS ASLEEP. PROVIDED A BANANA PER HIS REQUEST AND JUICE. MORE GROGGY AFTER ATIVAN GIVEN WITH SLURRED WORDS AND DIFFICULTY RAISING HIS ARMS BUT WOULD STILL STAND. SAYS HE HASN'T SLEPT IN DAYS. JAIRO FROM PT ADVOCATE IN TO ROOM AT 0930 WELL WITH PTS BELONGINGS FROM [employer]. ALSO SPOKE WITH CHIKA GRISSOM ABOUT POSSIBLE DISCHARGE TODAY AND SHE REPORTS NO BED AVAILABLE TODAY. SPOKE WITH PT ABOUT THIS AND STOPPED OBSCESSING ABOUT GETTING DRESSED TO GO SOMEWHERE. CUREENTLY LAYING IN BED LIGHTS OUT BLANKETS ON AND SLEEPING
--- NOTE | 2018-10-07 14:30 | NUR ---
PT SLEEPING FROM APPROX 1000 TO 1200 WHEN MD IN TO SEE PT AND WOKE HIM. AFTERWARD PT GOT UP AND NEEDED TO USE RESTROOM. 1 PERSON ASSIST TO BATHROOM WITH GAIT UNSTEADY. ASSISTED BACK TO BED AND ENCOURAGED HIM TO GO BACK TO SLEEP. WITHIN MINUTES WAS BACK UP STARTING TO WANDER ROOM IN UNSTEADY GAIT. ATTEMPTED TO REDIRECT BUT PT STATED HE WAS GOING TO [facility]. THOUGHT HE WAS IN [place] BUT DID KNOW HE WAS SUPPOSED TO GO TO A RESIDENTIAL FACILITY WORKED ON BY WINSOME FROM hike IN [facility]. GOT HIMSELF DRESSED AND KEPT GOING OUT TO HALLWAY TO WALK. KEPT LOOKING FOR A PLACE TO LEAVE. PT DID TAKE HIS LIBRIUM AND 2MG ATIVAN GIVEN AT THE SAME TIME. P.T. AND O.T. WORKED WITH PT DURING THAT TIME. CONTINUED TO TRY TO EXIT THE UNIT AND WAS RESTLESSLY WANDERING IN ROOM. HAD DIFFICULTY USING HIS HANDS TO GET CELL PHONE PLUGGED IN TO CHARGE. EXPRESSED FRUSTRATION WITH BEING FOLLOWED FOR HIS SAFETY STATING HE WAS SAFE ENOUGH AND WOULDN'T FALL. SPOKE WITH MD ABOUT PT BEING DIFFICULT TO REDIRECT THIS MORNING AND AFTER SLEEPING FROM ATIVAN IMMEDIATELY GOT OUT OF BED AND BECAME DIFFICULT TO REDIRECT AGAIN. ORDER TO HOLD INITIATED AND TRANSFER TO ICU. REPORT GIVEN TO JOSE IN ICU. TRANSFERRED VIA W/C.
--- NOTE | 2018-10-07 17:02 | NUR ---
1445: PT TO ICU 9 VIA WC, CARDIAC MONITORING INITIATED, VSS, HR NSR 60'S - 70'S, BP NORMOTENSIVE. PT SLEEPING AT THIS TIME, RR 16/MIN EVEN AND UNLABORED. BED ALARM ON. 1535: ASSESSMENT COMPLETED, HRR LS CTA, BT+, ABDOMEN SOFT, NONTENDER TO PALPATION, BT+. PT HAS SCLERAL JAUNDICE, SKIN INTACT. CIWA SCORE 7. IV TO R UPPER ARM DC'D FOR LEAKING, TIP INTACT, PRESSURE DRESSING APPLIED. IV INSERTED INTO RIGHT AC, PATENT AND INFUSING BANANA BAG WITHOUT DIFFICULTY. PT AWAKE, CONFUSED, SPEECH SLURRED, PT COOPERATIVE AND FOLLOWING DIRECTIONS, RESTRAINTS OFF AT THIS TIME. 1700: PT AWAKE ON AND OFF, REMAINS CONFUSED BUT COOPERATIVE, TOOK 1600 MEDS WITHOUT DIFFICULTY. PT ATTEMPTED TO VOID 3 TIMES WITHOUT SUCCESS, BLADDER SCAN SHOWS 478ML IN BLADDER. DR. CASTILLO NOTIFIED, NEW ORDER FOR PRIETS CATHETER D/T URINE RETENTION. WHEN THIS RN RE-ENTERED ROOM, PT WAS USING URINAL WITH ASSISTANCE, 400ML OUT. PRIEST CATHETER HELD AT THIS TIME. PT NOW RESTING IN BED, VS REMAIN STABLE, PT CALM AND COOPERATIVE, SPEECH REMAINS SLURRED. DINNER TRAY GIVEN. BED ALARM ON.
--- NOTE | 2018-10-07 18:30 | NUR ---
PT TOLERATED DINNER WELL, ATE INDEPENDENTLY. VS REMAIN STABLE, PT NORMOTENSIVE. PT CONFUSED AND FORGETFUL BUT COOPERATIVE WITH CARE, FOLLOWS COMMANDS. REPORT TO ONCOMING SHIFT.
--- NOTE | 2018-10-07 18:55 | NUR ---
PT REPEATEDLY ATTEMPTING TO GET OUT OF BED, NOT COMBATIVE, STATES HE IS BORED. CIWA 13, ATIVAN ADMINISTERED PER ORDERS. TV TURNED ON, PT SITTING IN BED TALKING, SPEECH IS SLOW AND UNCLEAR.
--- NOTE | 2018-10-07 23:21 | NUR ---
START OF SHIFT: REPORT FROM JAIRO RN AT BEDSIDE PT NEEDING REDIRECTION FROM JAIRO RN TO KEEP FROM GETTING OUT OF BED. AT THAT TIME AND CONTINUES ORIENTED TO SELF, PLACE, SITUATION, MONTH AND IS OFF BY ONE DAY. PT COOPERATIVE DURING ASSESSMENT AND REPEATED THAT HE WANTED TO LEAVE TO GO FIND HIS COAT WITH HIS WALLET THAT SOMEONE HAD STOLEN. PT EASILY CONSOLED AND REMAINED IN BED. PT LATER WAS ASSISTED UP TO SIDE OF BED WITH ASSIST TO USE URINAL AND WAS UNSTEADY ON FEET BUT, WITH ASSIST, USE URINAL AND THEN WAS ASSISTED BACK TO BED. PT HAD FALLEN ASLEEP AND WAS THIS RN TO HIS ROOM TWO DIFFERENT TIMES WHEN PT'S BED ALARM SOUNDED PT ONLY ROLLED ONTO HIS SIDE. THIS RN ASKED THE DRIVE IN TELLER TO PLACE A TAB ALARM ON PT'S BED ATTATCHED TO HIS UPPER BODY. THIS RN WAS ADMITTING ANOTHER PT, THE PILE DRIVING SETTER CAME OVER THIS RN'S VOICERA AND TECH WAS STATING, "PT IN ROOM 9 IS ABOUT TO FALL OUT OF BED", PT HAD FALLEN OVER THE LEFT BED RAIL ONTO THE FLOOR. THIS RN AND TWO OTHERS TO PT'S ROOM JUST PT LANDED ONTO THE FLOOR. PT BROUGHT HIMSELF UP TO A SITTING POSITION. PT DENIED HITTING HIS HEAD AND STATED, "I FELL ON MY SHOULDER" AND POINTED TOWARDS HIS LEFT SHOULDER. PT REPEATED, AGAIN, THAT HE HAD NOT FALLEN ON HIS HEAD AND STATED, "I DON'T KNOW WHAT THE BIG DEAL IS, I DIDN'T HIT MY HEAD". SITUATION EXPLAINED TO PT WITH PT STATING THAT HE JUST WANTED TO LEAVE. A ROMEO VEST PLACED ON PT AND PT PLACED IN LYING/SEMI-FOWLERS IN BED. PT CONTINUED TO TRY AND GET OUT OF BED STATING THAT HE NEEDED TO GO LOOK FOR HIS COAT AND WALLET PULLING AT LINES AND TRYING TO PULL ROMEO VEST OVER HIS HEAD. PT ASSISTED TO SIDE OF BED TO USE URINAL AND THEN PLACED BACK INTO BED WITH ROMEO VEST ON AND BED ALARM ON. REDIRECTED BACK TO HOSPITALIZATION AND THE REASON FOR. PT CONTINUED TO TRY AND GET OUT OF BED AND TRYING TO GET OUT OF ROMEO VEST. BILAT SOFT WRIST RESTRAINTS PLACED. PT NOTED TO HAVE SLIGHT TREMORS WHEN UP TO USE URINAL BUT REMAINS ORIENTED PERSON, PLACE, MONTH, AND SITUATION. SINCE WRIST RESTRANINTS ON, PT HAS PULLED OFF OXYMETER AND PULLED BP LINE OFF MONITOR BUT OTHERWISE IS CALM. WILL CONTINUE TO OFFER TOILETING AND SIPS OF WATER. PT IS IN VIEW OF NURSES STATION. BED ALARM ON. CALL LIGHT NEXT TO PT'S LEFT HAND WITH TV PLAYING AND SOUND ON. WILL CONTINUE TO MONITOR.
--- NOTE | 2018-10-08 03:09 | NUR ---
PT WITH INCREASED AGITATION, PULLING OFF LINES, AND TRYING TO WIGGLE OUT TO BOTTOM OF BED. PT YELLING OUT. WHEN THIS RN TO BEDSIDE, PT MUMBLING CURSE WORDS AND MUMBLE SOMETHING ABOUT NOT BEING ABLE TO MAKE IT TO WORK, "WITH ALL THIS STUFF ON". AFTER REPOSITONING AND TRYING TO RECONSOLE, PT GIVEN ATIVAN 2mg IVP. VSS. CALL LIGHT WITHIN REACH.
[2018-10-08 04:42] LABS: BASOPHILS ABSOLUTE AUTO 0.01 K/mm3 (0.00-0.23); BASOPHILS PERCENT AUTO 0 % (0-2); EOSINOPHILS ABSOLUTE AUTO 0.01 K/mm3 (0.00-0.68); EOSINOPHILS PERCENT AUTO 0 % (0-6); Hematocrit 29.2 % (37.0-53.0); IMMATURE GRAN PERCENT AUTO 0 % (0-1); LYMPHOCYTES ABSOLUTE AUTO 0.64 K/mm3 (0.84-5.20); LYMPHOCYTES PERCENT AUTO 24 % (21-46); MONOCYTES ABSOLUTE AUTO 0.59 K/mm3 (0.16-1.47); MONOCYTES PERCENT AUTO 22 % (4-13); Mean Corpuscular HGB 30.4 pg (26.0-34.0); Mean Corpuscular HGB Conc 30.8 g/dL (31.5-36.5); Mean Corpuscular Volume 99 fL (80-100); Mean Platelet Volume 11.6 fL (9.1-12.4); NEUTROPHILS ABSOLUTE AUTO 1.38 K/mm3 (1.96-9.15); NEUTROPHILS PERCENT AUTO 53 % (41-73); RDW Coefficient Variation 21.3 % (11.7-14.2); RDW Standard Deviation 78.2 fL (35.1-46.3); Red Blood Cell Count 2.96 M/mm3 (4.30-5.90); White Blood Cell Count 2.63 K/mm3 (4.00-11.30)
[2018-10-08 04:46] LABS: Platelet Count 43 K/mm3 (150-400)
[2018-10-08 05:07] LABS: Albumin, Blood 2.6 g/dL (3.4-5.0); Anion Gap 7 mmol/L (6-16); Blood Urea Nitrogen 8 mg/dL (8-24); Bun/Creatinine Ratio 13.3 (12.0-20.0); CO2, Blood 23 mmol/L (21-32); Calcium, Blood 8.3 mg/dL (8.5-10.1); Chloride, Blood 112 mmol/L (98-108); Glomerular Filtration Rate >60 (60-); Glucose, Blood 93 mg/dL (70-99); Phosphorus, Blood 3.3 mg/dL (2.5-4.9); Potassium, Blood 3.3 mmol/L (3.5-5.5); Sodium, Blood 142 mmol/L (136-145)
--- NOTE | 2018-10-08 05:40 | NUR ---
PT NOT USING CALL LIGHT. PT WET THE BED AND FLOOR. PT STATED THAT HE WAS CALLING NURSES BUT NOT HEARD. OVIDIO RN STATED WENT INTO PT'S ROOM TO RECYCLE BLOOD PRESSURE AND FOUND A LARGE PUDDLE (URINE) ON THE FLOOR. PT ASSISTED UP OUT OF BED TO CHAIR. GOWN AND LINEN CHANGE DONE WITH ENRIQUE CARE TO PT. PT ASSISTED BACK TO BED WITH RESTRAINTS ON. BED ALARM ON. CALL LIGHT NEXT TO LEFT HAND.
--- NOTE | 2018-10-08 06:48 | NUR ---
PT UP TO CHAIR. TOLERATING WELL THUS FAR. VEST RESTRAINT AND TAB ALARM ON. PT IN FULL VIEW OF NURSE'S STATION.
--- NOTE | 2018-10-08 07:30 | NUR ---
ASSUMED CARE OF PATIENT; SEE ASSESSMENT CHARTING FOR DETAILS. PATIENT LETHARGIC; ROUSES TO VERBAL STIMULI BUT HEAD FALLS FORWARD AND DRIFTS BACK TO SLEEP. SPEECH SOFT AND DIFFICULT TO UNDERSTAND (? GIBERISH AT TIMES). MONITOR REMAINS NSR AND VSS. ROMEO WAIST RESTRAINT IN PLACE TO PREVENT PATIENT FROM CLIMBING OOB OR CHAIR. TAB ALARM ATTACHED TO PATIENT'S CLOTHING IN ORDER TO KNOW IF PATIENT TRYING TO GET OOB ON OWN; CAN BE IMPULSIVE FROM MOMENT TO MOMENT. VOIDED 350ML OF CLIVE COLORED URINE IN URINAL. NO STOOLS; WILL CONT. TO GIVE ENULOSE, PO, PER ROUTINE ORDER.
--- NOTE | 2018-10-08 12:30 | NUR ---
RN AND RX SPECIALIST ASSISTED PATIENT BACK TO BED, WITH GAIT BELT. REQUIRES DIRECTION AND ASSIST. ROMEO WAIST RESTRAINT SECURED AFTER SITUATED IN BED AND BED ALARM ON.
--- NOTE | 2018-10-08 12:45 | NUR ---
PHYSICAL THERAPY WORKING WITH PATIENT; SEE NOTE.
--- NOTE | 2018-10-08 13:31 | NUR ---
OCCUPATIONAL THERAPIST HERE TO WORK WITH PATIENT. PATIENT VOIDED 380ML OF CLIVE COLORED URINE IN JUG; RN PLACED JUG FOR PATIENT; PATIENT RESTLESS.
--- NOTE | 2018-10-08 15:18 | NUR ---
CIWA THIS AM WAS 23; CURRENT CIWA 22; WILL GIVE ANOTHER DOSE OF ATIVAN; INCREASINGLY RESTLESS AND TRYING TO GET OOB.
--- NOTE | 2018-10-08 16:45 | NUR ---
DR. MCKEON HERE; DOES NOT PLAN TO ORDER ANY MEDICATIONS AT THIS TIME; STATES PATIENT IS STILL IN DELIRIUM STATE.
--- NOTE | 2018-10-08 18:10 | NUR ---
SUMMARY: ATIVAN 2MG IVT PRN X2 T/O THIS 12 HOUR SHIFT; RECEIVED LIBRIUM 50MG PO EVERY 4 HOURS. SLEEPS FOR SHORT PERIODS. SPEECH SLURRED AND SOMETIMES GIBBERISH. ABLE TO FOLLOW COMMANDS BUT CONT. TO KEEP TRYING TO GET OOB OR OUT OF RECLINER CHAIR; ROMEO WAIST RESTRAINT IN PLACE AND CAMERA VIEWING AT ALL TIMES. RN BATHED PATIENT FROM HEAD TO TOE AND CHANGED GOWN, VEST AND LINENS (AGAIN). RN SHAMPOOED HAIR AND COMBED HIS HAIR. O.T. WORKED WITH PATIENT EARLIER AND WORKED ON ORAL CARE; SEE THERAPY NOTES. APPETITE IMPROVED AT DINNER AND PATIENT DID BETTER WITH FEEDING SELF BUT REMAINS UNSTEADY AND SPILLS THINGS.
--- NOTE | 2018-10-08 19:15 | NUR ---
ASSUMED CARE PT SITTING UP IN CHAIR WITH TAB ALARM IN PLACE ATTEMPTING TO GET UP. PT UP TO BSC WITH LARGE LIQUID STOOL. PER REPORT-LACTULOSE GIVEN MULTIPLE TIMES TODAY FOR ELEVATED AMMONIA. PT IS ALERT TO SELF, YEAR, LOCATION AND FOLLOWING COMMANDS/COOPERATIVE WITH CARE; RENETTA ELEVATED D/T CURRENT AGITATION AT 14. MUMBLES WORDS AND EXPRESSES DISLIKE OF FREQUENT BM'S AND YELLOW "DRESS" HE IS WEARING AND WOULD LIKE HIS CLOTHING, EXPLAINED TWO PHYSICIAN HOLD AND NEED TO SPEAK WITH DR MENDOZA TOMORROW. VSS. ECG SHOWS SR AND SPOT CHECK O2 SATS AT 99% ON RA. PLAN TO MAINTAIN ROMEO RESTRAINT AND BED ALARM TO PREVENT FURTHER FALLS.
[2018-10-09 05:04] LABS: BASOPHILS ABSOLUTE AUTO 0.02 K/mm3 (0.00-0.23); BASOPHILS PERCENT AUTO 1 % (0-2); EOSINOPHILS ABSOLUTE AUTO 0.03 K/mm3 (0.00-0.68); EOSINOPHILS PERCENT AUTO 1 % (0-6); Hematocrit 27.7 % (37.0-53.0); Hemoglobin 8.4 g/dL (13.5-17.5); IMMATURE GRAN ABSOLUTE AUTO 0.01 K/mm3 (0.00-0.10); IMMATURE GRAN PERCENT AUTO 0 % (0-1); LYMPHOCYTES ABSOLUTE AUTO 0.67 K/mm3 (0.84-5.20); LYMPHOCYTES PERCENT AUTO 28 % (21-46); MONOCYTES ABSOLUTE AUTO 0.52 K/mm3 (0.16-1.47); MONOCYTES PERCENT AUTO 22 % (4-13); Mean Corpuscular HGB 29.6 pg (26.0-34.0); Mean Corpuscular HGB Conc 30.3 g/dL (31.5-36.5); Mean Corpuscular Volume 98 fL (80-100); NEUTROPHILS ABSOLUTE AUTO 1.17 K/mm3 (1.96-9.15); NEUTROPHILS PERCENT AUTO 48 % (41-73); RDW Coefficient Variation 21.2 % (11.7-14.2); RDW Standard Deviation 76.7 fL (35.1-46.3); Red Blood Cell Count 2.84 M/mm3 (4.30-5.90); White Blood Cell Count 2.42 K/mm3 (4.00-11.30)
--- NOTE | 2018-10-09 05:12 | NUR ---
UPDATE PT AGITATED AFTER AM LAB DRAW, AGAIN ATTEMPTING TO GET OOB, STATING "PEOPLE ARE TRYING TO KILL ME" AND AGAIN COMPLAINING ABOUT THE COLOR OF HIS HOSPITAL GOWN SAYING "WHO WEARS THIS HORRIBLE COLOR," AND WANTS HIS JEANS TO CHANGE INTO. PT REMINDED THAT HE FELL BUT PT DENIES MEMORY OF FALL AND IS UPSET HE IS BEING "TOLD WHAT TO DO BY MY MOM." FOOD AND FLUID OFFERED, MEDICATED WITH 2MG ATIVAN PER ORDERS, ROMEO VEST REMAINS IN PLACE.
[2018-10-09 05:14] LABS: Platelet Count 39 K/mm3 (150-400)
[2018-10-09 05:21] LABS: Albumin, Blood 2.3 g/dL (3.4-5.0); Anion Gap 5 mmol/L (6-16); Blood Urea Nitrogen 9 mg/dL (8-24); Bun/Creatinine Ratio 14.2 (12.0-20.0); CO2, Blood 24 mmol/L (21-32); Calcium, Blood 8.3 mg/dL (8.5-10.1); Chloride, Blood 112 mmol/L (98-108); Creatinine, Blood 0.64 mg/dL (0.60-1.20); Glomerular Filtration Rate >60 (60-); Glucose, Blood 99 mg/dL (70-99); Phosphorus, Blood 4.4 mg/dL (2.5-4.9); Potassium, Blood 3.6 mmol/L (3.5-5.5); Sodium, Blood 141 mmol/L (136-145)
--- NOTE | 2018-10-09 06:17 | NUR ---
SHIFT SUMMARY SEE PREVIOUS NOTES FOR SHIFT. CIWA 14-17 FOR SHIFT. PT REMAINS AGITATED ABOUT NOT BEING ALLOWED HIS CLOTHING AND DISLIKES THE YELLOW GOWN. PT HAS MADE MULTIPLE ATTEMPTS TO DISCONNECT SCD'S AND GET OOB BUT IS NOT STABLE ON FEET, WHEN REMINDED OF THIS, PT BECOMES ANGRY AND DENIES PREVIOUS FALL/UNSTEADY GAIT. THIS AM, PT REMEMBERS HE IS IN [place], THE CURRENT PRESIDENT AND YEAR BUT HAS POOR SHORT TERM MEMORY WHEN ASKING ABOUT HIS CLOTHING AND BACKPACK. VSS, ECG SHOWS SR AND SPOT CHECK O2 SATS >95%.
--- NOTE | 2018-10-09 07:15 | NUR ---
ASSUMED CARE OF PATIENT; SEE ASSESSMENT CHARTING FOR DETAILS. PATIENT AWAKE; ANSWERS QUESTIONS SLOWLY WITH SPEECH HARD TO UNDERSTAND; SOME WORDS VERY CLEAR; USUALLY WHEN HE IS ANGRY. CONT. TO WANT HIS CLOTHES/BACKPACK/CELL PHONE; STAFF REMINDS HIM HE IS ON A HOLD AND UNTIL HE IS READY TO LEAVE HOSPITAL HIS BELONGINGS REMAIN IN LOCKUP. HANDS TREMULOUS; DENIES HEADACHE; C/O CHRONIC NAUSEA BUT HAS HAD NO ISSUES WITH EATING. AMMONIA LEVEL 98 TODAY; HAD 3 OF 4 DOSES OF LACTULOSE THE PAST 24 HOURS; UNCLEAR WHY READING IS ELEVATED. HAD 3 LARGE LOOSE TO LIQUID STOOLS DURING THE EVENING/NIGHT. SMELLS OF URINE; CLEANSED AND CLOTHING CHANGED; ASSISTED TO RECLINER USING GAIT BELT. ROMEO VEST/RESTRAINT MAINTAINED AND SECURED; PATIENT CONT. TO TRY TO GET UP FROM CHAIR OR BED; 24 HOUR CAMERA MONITORING CONTINUES. LIBRIUM 50MG GIVEN EVERY 4 HOURS WITH PRN DOSING WELL PRN DOSING OF ATIVAN. CURRENT CIWA LEVEL AROUND 15. RN HOLDING URINAL IN PLACE FOR PATIENT; VOIDS ABOUT 350-450/ML PER VOID; ENCOURAGED; SPILLS URINE IF NOT ASSISTED. VSS AND MONITOR REMAINS NSR.
--- NOTE | 2018-10-09 08:00 | NUR ---
DR. CASTILLO HERE; SEE ORDERS.
--- NOTE | 2018-10-09 10:00 | NUR ---
PHYSICAL THERAPIST HERE; AMBULATING PATIENT WITH USE OF GAIT BELT AND WALKER; SEE THERAPY NOTES. PATIENT RESTLESS AND AGITATED; RN GAVE DOSE OF ATIVAN 2MG IV TO HELP CALM PATIENT. SAT ON TOILET AFTER AMBULATION; NO BM BUT PASSED LG AMOUNTS OF FLATUS AND VOIDED. BACK TO BED AND VEST SECURED AND BED ALARM ENGAGED. PATIENT APPEARS A LITTLE SLEEPY.
--- NOTE | 2018-10-09 12:27 | NUR ---
CIWA 18; PATIENT GIVEN EXTRA DOSE OF LIBRIUM EARLIER D/T SEVERE RESTLESSNESS AND FIDGETINESS. EATING LUNCH AT PRESENT; COORDINATION REMAINS IMPAIRED.
--- NOTE | 2018-10-09 18:14 | NUR ---
SUMMARY: RENETTA 17-19 T/O THE DAY. RN AMBULATED PATIENT T/O ICU WEST; GAIT BELT WORN BUT PATIENT REFUSED TO USE WALKER AFTER ABOUT 15 FT. STOPPED FREQUENTLY T/O WALK; GRABBED ONTO COUNTERS, ETC. TO HELP WITH BALANCE OR FATIGUE. BACK TO ROOM AND SAT ON TOILET; SMALL LOOSE STOOL AND LARGE AMOUNTS OF FLATUS. PATIENT CONT. TO ASK FOR HIS BACK PACK, CELL PHONE AND CLOTHES AND WANTS TO TALK TO HIS DAD. EPISODES OF SHOUTING AT RN AND THREATENING STAFF THAT THEY ARE KEEPING HIM AGAINST HIS WILL; STATED THERE WERE 3 COUNTS HE COULD CHARGE US WITH AND STATES HE HAS 30 YEARS EXPERIENCE WITH THE CRIMINAL SYSTEM. PATIENT NEVER ATTEMPTING TO HIT STAFF ETC; OVERALL PLEASANT BUT VERY FORGETFUL WITH POOR SHORT TERM MEMORY AND CONT. TO TRY AND GET OOB OR OUT OF RECLINER; DOES NOT REMEMBER TO USE CALL LIGHT; VERY IMPULSIVE. VEST KEPT ON PATIENT AND SECURED WHEN SITTING OR LYING IN BED. 2 DOSES OF IV (PRN) ATIVAN AND 1 DOSE OF PO (PRN) LIBRIUM WELL LIBRIUM 50MG EVERY 4 HOURS ROUTINELY; SLEPT LESS THAN 2 HOURS T/O DAY; SHORT PERIODS. APPETITE FAIR. ASSISTED WITH USE OF URINAL; DEPENDS (PULL UPS) WORN BUT INCONT. X2 WITH 4 VOIDS OF 459ML+. WILL REPORT TO ONCOMING RN.
--- NOTE | 2018-10-09 19:00 | NUR ---
ASSUMED CARE ASSUMED CARE OF PATIENT. AWAKE AND ALERT. ORIENTED TO SELF AND TO MONTH/YEAR. STATES THAT HE IS IN A "CORRECTIONAL FACILITY." CONFUSED CONVERSATION NOTED. SLOW VERBAL RESPONSE AND GARBLED SPEECH. MOVES FROM BSC TO BED WITH ONE PERSON ASSIST. ONCE IN BED, BED ALARM IS ON AND ROMEO VEST IN PLACE. PT IMMEDIATELY ATTEMPTS TO CLIMB OUT OF BED. CONTINUES TO BE IMPULSIVE AND FORGETFUL. REDIRECTABLE, BUT NEEDS FREQUENT REMINDING AND REDIRECTION. DENIES C/O PAIN AT THIS TIME. DENIES C/O NAUSEA. RESPIRATIONS EVEN AND UNLABORED. VOIDING WITHOUT DIFFICULTY. TAKING SIPS OF LIQUIDS WITHOUT DIFFICULTY. PASSED SMALL LOOSE BROWN STOOL. SEE SHIFT ASSESSMENT FOR FULL ASSESSMENT.
--- NOTE | 2018-10-09 20:00 | NUR ---
CALL TO MD CALL TO CAREY MCKEON NP FOR UPDATE OF PT. SUPPORT SERVICES TECH INFORMED OF PATIENT'S CONTINUED IMPULSIVITY, AGITATION, CONFUSION, AND RESTLESSNESS. DISCUSSED PLAN OF CARE AND THE FACT THAT CURRENT PLAN IS NOT EFFECTIVE IN TREATING PATIENT'S ENCEPHALOPATHY. NO NEW ORDERS RECEIVED AT THIS TIME.
--- NOTE | 2018-10-10 00:44 | NUR ---
AGITATION PT WITH INCREASED AGITATION AND RESTLESSNESS. REQUIRING STAFF AT BEDSIDE CONTINUOUSLY TO KEEP HIM FROM GETTING OUT OF RESTRAINTS AND GETTING OUT OF BED. CONTINUOUSLY PULLING ON RESTRAINTS AND PUTTING LEGS OVER SIDE OF BED. ORIENTED TO SELF AND MONTH/YEAR ONLY. STATES THAT HE IS IN [place], BUT DOESN'T KNOW WHAT BUILDING HE IS IN. CURSING AT STAFF. MEDICATED WITH LIBRIUM 50MG PO AND ATIVAN 4MG IV AT THIS TIME.
--- NOTE | 2018-10-10 03:22 | NUR ---
AGITATION PT UP TO CHAIR FOR APPROXIMATELY 20 MINUTES. BACK TO BED D/T FREQUENT ATTEMPTS TO GET OUT OF CHAIR. PT REPEATEDLY STATES "I NEED TO GO TO MY ROOM." ORIENTED TO SELF ONLY AT THIS TIME. REDIRECTABLE FOR ONLY SHORT PERIODS OF TIME. CONTINUES TO BE IMPULSIVE AND FORGETFUL. CURSES AT STAFF. BED ALARM IS ON AND ROMEO VEST REMAINS ON.
[2018-10-10 03:35] LABS: BASOPHILS ABSOLUTE AUTO 0.02 K/mm3 (0.00-0.23); BASOPHILS PERCENT AUTO 1 % (0-2); EOSINOPHILS ABSOLUTE AUTO 0.02 K/mm3 (0.00-0.68); EOSINOPHILS PERCENT AUTO 1 % (0-6); IMMATURE GRAN ABSOLUTE AUTO 0.02 K/mm3 (0.00-0.10); IMMATURE GRAN PERCENT AUTO 1 % (0-1); LYMPHOCYTES ABSOLUTE AUTO 0.64 K/mm3 (0.84-5.20); LYMPHOCYTES PERCENT AUTO 22 % (21-46); MONOCYTES ABSOLUTE AUTO 0.43 K/mm3 (0.16-1.47); MONOCYTES PERCENT AUTO 15 % (4-13); Mean Corpuscular Volume 100 fL (80-100); NEUTROPHILS ABSOLUTE AUTO 1.75 K/mm3 (1.96-9.15); NEUTROPHILS PERCENT AUTO 61 % (41-73); RDW Coefficient Variation 21.3 % (11.7-14.2); White Blood Cell Count 2.88 K/mm3 (4.00-11.30)
[2018-10-10 03:41] LABS: Platelet Count 43 K/mm3 (150-400)
[2018-10-10 03:50] LABS: Albumin, Blood 2.5 g/dL (3.4-5.0); Anion Gap 6 mmol/L (6-16); Blood Urea Nitrogen 6 mg/dL (8-24); Bun/Creatinine Ratio 9.6 (12.0-20.0); CO2, Blood 23 mmol/L (21-32); Calcium, Blood 8.3 mg/dL (8.5-10.1); Chloride, Blood 111 mmol/L (98-108); Creatinine, Blood 0.62 mg/dL (0.60-1.20); Glomerular Filtration Rate >60 (60-); Glucose, Blood 125 mg/dL (70-99); Phosphorus, Blood 3.5 mg/dL (2.5-4.9); Potassium, Blood 3.6 mmol/L (3.5-5.5); Sodium, Blood 140 mmol/L (136-145); Triglycerides 30 mg/dL (30-160)
--- NOTE | 2018-10-10 06:16 | NUR ---
SHIFT SUMMARY CONTINUES WITH MODERATE AGITATION AND RESTLESSNESS T/O SHIFT. PT IS IMPULSIVE AND FORGETFUL. REDIRECTABLE FOR ONLY SHORT PERIODS. OCCASIONALLY CURSES AT STAFF. REPEATEDLY ATTEMPTS TO CLIMB OUT OF BED. ROMEO VEST ON . BED ALARM ON. MEDICATED WITH LIBRIUM 50MG PO X 4 DOSES AND ATIVAN 4MG IV X 3 DOSES. CIWA 16-20. VSS. RESPIRATIONS EVEN AND UNLABORED. DENIES C/O PAIN OR NAUSEA. VOIDING WITHOUT DIFFICULTY. INCONTINENT AT TIMES. WILL REPORT TO DAY SHIFT RN WHEN AVAILABLE.
--- NOTE | 2018-10-10 07:30 | NUR ---
ASSUMED CARE OF PATIENT; SEE ASSESSMENT CHARTING FOR DETAILS. PATIENT RESTLESS AND TALKING (SLURRED/DIFFICULT TO UNDERSTAND) TO STAFF THAT HE NEEDS HIS BACK PACK, HIS JEANS AND CELL PHONE; WANTS TO SIGN THE PAPERS SO HE CAN LEAVE. THOUGHT HE WAS IN [place], THEN [facility]; AWARE IT IS 2018 AND MONTH IS SEPTEMBER. POOR SHORT TERM MEMORY; MUST BE REORIENTED AND REFOCUSED CONSTANTLY. ASSISTED OOB TO TOILET; VOIDED LARGE AMOUNTS; PASSED FLATUS BUT NO BM. RN PLACED GAIT BELT ON PATIENT PRIOR TO OOB; WALKER USED BY PATIENT BUT HE WAS BEING TAKEN FOR A WALK HE SHOVED THE WALKER AWAY FROM HIM AND DID NOT WANT TO USE IT; PREFERRED TO SIT IN RECLINER. ASSISTED TO RECLINER AND THEN ROMEO VEST RESTRAINT SECURED TO CHAIR AND TAB ALARM ACTIVATED. REMAINS ON MONITORS BUT VS CHECK DONE EVERY 4 HOURS AND PRN. BIOX MAINTAINS 98-100% ON ROOM AIR; LUNGS CLEAR.
--- NOTE | 2018-10-10 09:10 | NUR ---
DR. GOLD HERE; RN INFORMED HIM THAT ROUTINE LIBRIUM WELL PRN LIBRIUM AND PRN ATIVAN DO NOT BE WORKING TO ALLOW PATIENT TO SETTLE DOWN TO SLEEP FOR A FEW HORS; ODS OFF FOR 1/2 TO 1 HOUR INTERVALS. PHYSICIAN TO ORER AN MED. TO HELP WITH SLEEP. NOTE: PSYCHIATRY WILL NOT BE AVAILABLE TO SEE PATIENT TIL THURSDAY.
--- NOTE | 2018-10-10 10:15 | NUR ---
ATIVAN 4MG IV D/T CONTINUOUS ATTEMPTS TO GET OUT OF RECLINER; RN REPOSITIONED PATIENT; TRIED TO TAKE HIM FOR WALK BUT HE IS BEING NON-COOPERATIVE; ANGRY THAT HE IS "BEING HELD AGAINST MY WILL", WANTING HIS CLOTHES AND BACKPACK ETC.
--- NOTE | 2018-10-10 13:30 | NUR ---
WORKED WITH O.T. ON GROOMING/ORAL CARE AND THEN AMBULATED, WITH GAIT BELT AND WALKER AND STANDBY ASSIST.; SEE THERAPY NOTES.
--- NOTE | 2018-10-10 14:05 | NUR ---
WORKED WITH PHYSICAL THERAPY; SEE NOTES.
--- NOTE | 2018-10-10 18:30 | NUR ---
SUMMARY: APPETITE REDUCED TODAY BUT NO GI UPSET. CONTINUES TO TRY TO GET OUT OF CHAIR, ETC. AND REQUIRES VEST RESTRAINT WELL 24/7 CAMERA MONITORING. SEDATIVE MEDS. GIVEN T/O DAY. VOIDING IN URINAL ON OCCASION (ASSISTED) BUT INCONTINENT SEVERAL TIMES; ATTEMPTED TO VOID SEVERAL TIMES WITHOUT SUCCESS. CLOTHING CHANGED AND LINENS PRN. UP IN RECLINER MOST OF DAY; WILL CHANGE DEPENDS/PJ BOTTOMS AND WASH SKIN THEN ASSIST TO BED AND SECURE VEST. PATIENT OVERALL COOPERATIVE WITH MEDICATIONS, AMBULATION/TRANSFERS ETC. WILL REPORT TO ONCOMING RN.
--- NOTE | 2018-10-10 21:39 | NUR ---
ASSUMED CARE OF PT, REPORT RCV'D FROM PENNIE GUARDADO. PT ALERT TO SELF, YEAR, AND PRESIDENT BUT CONFUSED ON LOCATION. PT IS VERY WEAK AND UNSTEADY ON HIS FEET REQUIRING 2-PERSON ASSIST OR 1-PERSON WITH GAIT BELT. PT IN ROMEO VEST WITH BED ALARM ON DUE TO HISTORY OF FALLS, WEAKNESS, AND IMPULSIVENESS. PT IRRITABLE AND ANGRY BUT ABLE TO FOLLOW DIRECTIONS WITH CONTINUOUS PROMPTING. PT HAS BEEN UP TO BEDSIDE COMMODE WITH ASSISTANCE BUT UNABLE TO HAVE A BOWEL MOVEMENT OR URINATE IN COMMODE. ATTENDS IN PLACE. CURRENT CIWA SCORE OF 24. SEE FULL SHIFT ASSESSMENT.
--- NOTE | 2018-10-10 23:59 | NUR ---
MIDSHIFT ASSESSMENT PT CONTINUES TO BE CONFUSED AND IN NEEDS OF BEHAVIORAL REMINDERS. PT CONTINUOUSLY RIPS HIS ATTENDS OFF AND ATTEMPTS GETTING OUT OF BED. PT THEN TORE THE SEAM OF HIS ROMEO VEST REQUIRING PLACEMENT OF A NEW ONE. PT IS REMINDED THAT HE IS WEAK AND IN NEED OF ASSISTANCE WHILE AMBULATING. PT ASKS FOR HELP BY YELLING "HEY BITCH" TO THIS NURSE. PT REMAINS IN ROMEO VEST WITH BED ALARM ON.
--- NOTE | 2018-10-11 06:09 | NUR ---
SHIFT SUMMARY PT ABLE TO SLEEP SOUNDLY WITH NO OUTBURSTS OR IMPULSIVE BEHAVIOR SINCE 0100. PT REMAINS IN ROMEO VEST, BED ALARM ON, BED IN LOW LOCKED POSITION, SIDERAILS UP X3. PT HAD 750 ML URINE OUTPUT, NO BM. VSS. SEE PREVIOUS SHIFT NOTES. WILL REPORT TO DAYSHIFT NURSE.
--- NOTE | 2018-10-11 09:25 | NUR ---
PT HAS VOIDED OVER RAIL AT BEGINING OF SHIFT, CLEANED AND BATHED. PT IS REDIRECTABLE BUT FORGETFUL AND CONT TO NEED ROMEO VEST FOR SAFETY. PT IS ABLE TO FEED SELF. OTHERWISE MUMBLES AND DIFFICULT TO UNDERSTAND. PT IS RESTLESS BUT REMIANS COOPERATIVE. SEE RENETTA.
--- NOTE | 2018-10-11 10:11 | NUR ---
REPORT CALLED TO CAIN CASPER AND WILL TRANSPORT PER CHAIR TO [address] [place] [address]. PT IS CURRENTLY IN CHAIR AND REQUIRED MOD. SBA FOR BALANCE AND DIRECTION.
--- NOTE | 2018-10-11 10:54 | NUR ---
PATIENT ARRIVED TO THE UNIT VIA WHEELCHAIR. TRANSFERRED TO HOSPITAL BED WITH 1PA AND GAIT BELT. ROMEO VEST IN PLACE AND TIED DOWN. PT ALERT AND COOPERATIVE WITH CARE. PT USED URINAL IN BED WITH NURSE ASSISTANCE. PATIENT LYING IN BED RESTING.
--- NOTE | 2018-10-11 15:16 | NUR ---
PATIENT BECAME IRRITABLE AROUND 1400. HE TRIES TO GET UP FROM THE BED AND CHAIR, PULLING AT THE VEST RESTRAINT. HE IS NOT ORIENTED TO PLACE, TIME OR WHY HE IS AT THE HOSPITAL. LIBRIUM WAS ADMINISTERED PRN. WILL CONTINUE TO MONITOR THE PATIENT AND REORIENT HIM.
--- NOTE | 2018-10-11 17:26 | NUR ---
PT IS ALERT AND COOPERATIVE. HE IS CONFUSED AND NEEDS CONSTANT REORIENTATION. HE HAS BEEN UP IN THE RECLINER SINCE LUNCH. CHAIR ALARM IS ON. HE IS CONSTANTLY TRYING TO GET OUT OF THE CHAIR. HIS BELONGINGS WERE GIVEN TO THE PATIENT SO HE CAN LOOK THROUGH THEM. PATIENT IS COOPERATIVE WITH TAKING MEDICATIONS AND FOLLOWING DIRECTIONS HE JUST FORGETS HIS OWN ABILITIES. ROMEO VEST IS IN PLACE. WILL CONTINUE TO REDIRECT THE PATIENT AND ENSURE HIS SAFETY.
--- NOTE | 2018-10-11 20:15 | NUR ---
LIBRIUM 25MG PO PRN PROVIDED FOR CIWA 11 W/HS SCHEDULED MEDS. PT HAS BEEN AGGITATED, IRRITABLE, CURSING AT STAFF RE: VEST RESTRAINT IN CHAIR AND IS MAKING CONSTANT ATTEMPTS OOB BY SELF. HE IS PULLING AT RESTRAINTS, HAS UNSTEADY GAIT, IS FALL RISK AND IS CONFUSED EXCEPT TO SELF. HE REDIRECTS BUT ONLY BRIEFLY. WCTM AND MEDICATE PRN.
--- NOTE | 2018-10-12 00:23 | NUR ---
PT CONT'S RESTRAINED IN ROMEO VEST BUT IS ASLEEP AT THIS TIME AND SEEMS TO BE MORE CALM AFTER PRN LIBRIUM AND SCHEDULED ZYPREXA. VEST INTACT FOR FALL RISK, IMPULSIVITY, CONFUSION, IRRITABILITY AND CONSTANT ATTEMPTS OOB BY SELF WA.
--- NOTE | 2018-10-12 04:08 | NUR ---
ALERTED TO HEIGHTENED AGGITATION, NONCOMPLIANCE, ANXIETY, IMPULSIVITY AND HAVING TORN THROUGH 2 ROMEO VESTS W/REPEATED ATTEMPTS OOB. BILAT WRIST RESTRAINTS RX'D IN ADDITION TO ROMEO RENEWAL AND WERE APPLIED. PT ALSO GIVEN LIBRIUM 25MG PO AND ATIVAN 1MG IV PRN, AWAITING EFFECT.
[2018-10-12 04:44] LABS: Hematocrit 28.2 % (37.0-53.0); Hemoglobin 8.6 g/dL (13.5-17.5); Mean Corpuscular HGB 29.5 pg (26.0-34.0); Mean Corpuscular HGB Conc 30.5 g/dL (31.5-36.5); Mean Platelet Volume 11.6 fL (9.1-12.4); RDW Standard Deviation 75.4 fL (35.1-46.3); Red Blood Cell Count 2.92 M/mm3 (4.30-5.90); White Blood Cell Count 2.92 K/mm3 (4.00-11.30)
[2018-10-12 04:48] LABS: Mean Corpuscular Volume 97 fL (80-100)
[2018-10-12 04:49] LABS: Platelet Count 47 K/mm3 (150-400)
[2018-10-12 05:01] LABS: Albumin, Blood 2.5 g/dL (3.4-5.0); Anion Gap 7 mmol/L (6-16); Blood Urea Nitrogen 6 mg/dL (8-24); Bun/Creatinine Ratio 8.5 (12.0-20.0); CO2, Blood 24 mmol/L (21-32); Calcium, Blood 8.2 mg/dL (8.5-10.1); Chloride, Blood 111 mmol/L (98-108); Creatinine, Blood 0.71 mg/dL (0.60-1.20); Glomerular Filtration Rate >60 (60-); Glucose, Blood 88 mg/dL (70-99); Phosphorus, Blood 3.6 mg/dL (2.5-4.9); Potassium, Blood 3.2 mmol/L (3.5-5.5); Sodium, Blood 142 mmol/L (136-145)
--- NOTE | 2018-10-12 05:05 | NUR ---
PT'S PLATELETS CONTINUE CRITICALLY LOW AT 47, WAS 43. RUBBER TIRE CURER AWARE AND MD PREVIOUSLY AWARE SO NO NEED TO NOTIFY MD AT THIS TIME.
--- NOTE | 2018-10-12 05:30 | NUR ---
PT CONT'T RESTLESS, FIGITY AND IS MAKING ATTEMPTS OOB DESPITE RESTRAINTS AND HAVING RECIEVED PRN MEDS. HE ISN'T CURSING OR YELLING OUT ANYMORE AND APPEARS MORE CALM BUT REMAINS IMPULSIVE.
--- NOTE | 2018-10-12 05:32 | NUR ---
SUMMARY: PT CONFUSED EXCEPT TO SELF AND HAS MOSTLY INCOHERENT MUMBLING SPEECH T/O NOCTE. OCCASIONALLY HE WILL HAVE SENSICAL SENTENCES BUT HE'S BEEN FAIRLY WITHDRAWN TONIGHT OFTEN IGNORING STAFF Q'S. HE'S IMPULSIVE, A FALL RISK, MAKES FREQ ATTEMPTS OOB BY SELF, TORE THROUGH 2 ROMEO VESTS AND REQUIRED APPLICATION OF WRIST RESTRAINTS TONIGHT. PT GETS IRRITABLE, ANXIOUS AND AGGITATED, CURSING ABOUT RESRAINTS AND YELLS INTO HALLS AT TIMES. HIS CIWAS RANGED FROM 5 (WHILE ASLEEP) TO 12 WHEN AWAKE. LIBRIUM 25MG PO X2 DOSES AND ATIVAN 1MG IV X1 WERE PROVIDED TO HELP CALM PT. SCHEDULED ZYPREXA SEEMS MOST EFFECTIVE AND PT SLEPT FOR A LITTLE WHILE AFTER RECIEVING IT AT HS. HE'S BEEN USING THE URINAL W/O DIFFICULTY BUT HAS REFUSED TO DO SO SINCE SHIFT CHANGE. PT REQ'S ALARMS AT ALL TIMES AND IS REDIRECTABLE BUT FORGETFULL AND NEEDS CONSTANT REMINDERS. HE SCATTERED BELONGINGS AND POSSESSIONS OF WALLET T/O ROOM. ITEMS WERE REPLACED AND REMOVED FROM BEDSIDE SO THEY WOULDN'T GET LOST. NO ACUTE CHANGES, VSS AND AFEBRILE. WCTM AND REPORT TO DAY RN.
--- NOTE | 2018-10-12 12:14 | NUR ---
Patient is lying in bed and alert. Patient immediately verbalizes his frustration about being in restraints and his frustration about being in the hospital. Patient swears and tries to break the restraints. I provide a calming presence and normalize patient's experience. I discuss with patient about the process taking time and that it revolves around his success when he is discharged. Certain things must be in place for a positive transition to his next stop. Patient acknowledges that he understands this but still wants freedom now. I provided companionship and prayer. Patient showed signs of reduced anger and thanked me for visiting.
--- NOTE | 2018-10-12 18:33 | NUR ---
PATIENT IS ALERT. HE IS ORIENTED TO SELF ONLY. HE FOLLOWS DIRECTIONS WELL. THE PATIENT BECAME AGITATED THIS MORNING UPON WAKING UP AND CONTINUED THROUGHOUT THE DAY. DR. GOLD WAS PUT IN AN ORDER FOR ZYPREXA 5MG Q4H PRN. THIS MEDICATION WAS ADMINISTERED AND SEEMED TO HELP FOR A WHILE. THE CAMERA IS ON IN THE ROOM AND THE PATIENT IS BEING MONITORED BY THE MONITOR TECHS. THE PATIENT HAS A ROMEO VEST AND SOFT WRIST RESTRAINTS ON.
--- NOTE | 2018-10-13 06:28 | NUR ---
in restraints due to dementia, forgets why and where he is, unstable on feet, taking off briefs and trying to get up, call light in reach, roomair, saline locked, will continue to monitor and treat until sbar report provided to esdras thrasher
--- NOTE | 2018-10-13 11:22 | NUR ---
PT SITTING UP IN CHAIR CURSING AT STAFF, THRASHING AROUND IN CHAIR AND PULLING ON RESTRAINTS. ORAL LIBRIUM GIVEN WITHOUT ANY IMPROVEMENT, IV ATIVAN GIVEN.
--- NOTE | 2018-10-13 11:30 | NUR ---
PT DISCHARGED VIA [facility] AT 1130.
--- NOTE | 2018-10-13 17:07 | NUR ---
SHIFT SUMMARY- PT HAS BEEN AGITATED T/O MOST OF THE SHIFT, IV ATIVAN X1 AND LIBRIUM GIVEN X2. PT YELLING AND CURSING, THRASHING AROUND IN CHAIR AND PULLING ON RESTRAINTS. PT UNSTEADY AND IMPUSLIVE. PT HAS REMAINED IN ROMEO AND SOFT WRIST T/O THE DAY. PT WITH POOR APETITE. AMBULATED IN VILLARREAL WITH PHYSICAL THERAPY IN WHICH THERAPY REPORTS PT HAS DECLINED AND MAY REQUIRE SKILLED NURSING PLACEMENT. PT TAKES MEDICATIONS BUT DID THROW LACTULOSE ONCE THIS SHIFT. NO OTHER ACUTE CHANGES THIS SHIFT.
--- NOTE | 2018-10-13 17:42 | NUR ---
SPOKE WITH DR MCKEON REGARDING PT AGITATION AND BEHAVIORS T/O THE SHIFT, PER DR MCKEON HE WILL ADJUST MEDICATIONS TOMORROW.
--- NOTE | 2018-10-13 18:13 | NUR ---
SHIFT SUMMARY PT IN RESTRAINTS, AGITATED, TRYING TO GET UP, PULLING ON RESTRAINTS, SWEARING. SPEECH IS SLURRED AND DIFFICULT TO UNDERSTAND. PHYSICAL THERAPY WORKED WITH PT AND AMBULATED IN THE VILLARREAL. BLADDERSCANNED PT AND FOUND 897 ML, ENCOURAGED PT TO VOID, VOIDED 600 ML. WAITING FOR PLACMENT
--- NOTE | 2018-10-14 16:13 | NUR ---
SHIFT SUMMARY THE PATIENT HAS BEEN AGITATED MOST OF THE SHIFT. HE PRESENTED THIS SHIFT WITH VITALS WNL, THE PATIENTS LUNG SOUNDS WERE UNDETECTABLE, PATINET REFUSED TO RESPOND TO REQUEST, THE PATIENT IS A&O TO SELF. THE PATIENT IS IN RESTRISTAINTS, BOTH A ROMEO AND SOFT WRIST. THE PATIENT GOT UP TO THE CHAIR AT 1400 AND IS STILL THERE, SETTING OFF THE CHAIR ALARM. THE PATIENT'S DOCTOR CHANGED HIS MEDICATIONS TODAY TO ADD SEROQUEL, BOTH PRN AND AT BEDTIME. THE PATIENT IS SETTING IN HIS CHAIR AT THIS TIME, WILL CONTINUE TO MONITOR.
[2018-10-15 05:08] LABS: BASOPHILS ABSOLUTE AUTO 0.02 K/mm3 (0.00-0.23); BASOPHILS PERCENT AUTO 1 % (0-2); EOSINOPHILS ABSOLUTE AUTO 0.04 K/mm3 (0.00-0.68); EOSINOPHILS PERCENT AUTO 2 % (0-6); Hematocrit 26.2 % (37.0-53.0); IMMATURE GRAN ABSOLUTE AUTO 0.01 K/mm3 (0.00-0.10); IMMATURE GRAN PERCENT AUTO 0 % (0-1); LYMPHOCYTES ABSOLUTE AUTO 0.57 K/mm3 (0.84-5.20); LYMPHOCYTES PERCENT AUTO 23 % (21-46); MONOCYTES PERCENT AUTO 16 % (4-13); Mean Corpuscular HGB 30.3 pg (26.0-34.0); Mean Corpuscular HGB Conc 30.5 g/dL (31.5-36.5); Mean Corpuscular Volume 99 fL (80-100); Mean Platelet Volume 11.6 fL (9.1-12.4); NEUTROPHILS ABSOLUTE AUTO 1.48 K/mm3 (1.96-9.15); NEUTROPHILS PERCENT AUTO 59 % (41-73); Platelet Count 52 K/mm3 (150-400); RDW Coefficient Variation 21.1 % (11.7-14.2); RDW Standard Deviation 76.4 fL (35.1-46.3); Red Blood Cell Count 2.64 M/mm3 (4.30-5.90); White Blood Cell Count 2.52 K/mm3 (4.00-11.30)
[2018-10-15 05:45] LABS: Alanine Aminotransfer (ALT/SGP 42 U/L (12-78); Albumin, Blood 2.2 g/dL (3.4-5.0); Albumin/Globulin Ratio 0.5 (0.8-1.8); Alk Phos 116 U/L (50-136); Anion Gap 7 mmol/L (6-16); Aspartate Aminotrans (AST/SGOT 46 U/L (12-37); Bilirubin, Total 1.4 mg/dL (0.1-1.0); Blood Urea Nitrogen 5 mg/dL (8-24); Bun/Creatinine Ratio 7.7 (12.0-20.0); CO2, Blood 24 mmol/L (21-32); Calcium, Blood 8.1 mg/dL (8.5-10.1); Chloride, Blood 111 mmol/L (98-108); Creatinine, Blood 0.65 mg/dL (0.60-1.20); Globulin, Blood 4.3 g/dL (2.2-4.0); Glomerular Filtration Rate >60 (60-); Glucose, Blood 94 mg/dL (70-99); Potassium, Blood 3.3 mmol/L (3.5-5.5); Sodium, Blood 142 mmol/L (136-145); Total Protein, Blood 6.5 g/dL (6.4-8.2)
--- NOTE | 2018-10-15 07:21 | NUR ---
HAN WAS INTERMITTENTLY ANGRY AND HOSTILE AND THEN JUST SLEEPING WHEN MEDICATED. I GOT IN REPORT FROM DAY NURSE THAT HE HASNT HAD A BM CZ HE IS NOT EATING ANYTHING. SO I SAT WITH HIM AND HE HELPED HIM EAT A HALF SANDWICH AND HE DRAINK 480 ML OF SODA WITH IT. I HAD TO ASSIST HIM BUT HE ATE WHEN OFFERED THE FOOD AND DRINK. I SCANNED HIS BLADDER THIS MORNING HE HADNT VOIDED. HE HAD 431ML IN THE BLADDER BUT REFUSED CATHING, SO PASSED THIS TO DAY SHIFT NURSE TO FORWARD TO THE HOSPITALIST. PATIENT MAY NEED TO BE A FEEDER UNTIL HE IS BETTER ABLE TO HELP HIMSELF.
--- NOTE | 2018-10-15 16:58 | NUR ---
SHIFT SUMMARY NO ACUTE CONCERNS OF PATIENT AT THIS TIME. PATIENT HAS BEEN VERY LETHARGIC AT THIS TIME AND WILL ASSESS FOR CHANGES. PATIENT HAS BEEN IN AND OUT OF ALERTNESS TODAY AND GETTING HARDER TO GET HIS MEDICATIONS IN HIM.
--- NOTE | 2018-10-15 19:18 | NUR ---
PATIENT TO SIDE OF BED ACTIVATING ALARM X 3 IN ROMEO VEST. PATIENT ASSISTED BACK INTO BED. BED ALARM ACTIVATED.
--- NOTE | 2018-10-15 22:28 | NUR ---
HOSPITALIST DR SPICER RENEWED PATIENT ROMEO VEST AND ADDED SOFT BILATERAL SOFT WRIST RESTRAINTS. PATIENT SWINGS LEGS TO SIDE OF BED X 10 AND ACTIVATED BED ALARM. RESTRAINTS FOR PATIENT AND STAFF SAFETY. PULLING AT GOWN; CORDS IVS.
--- NOTE | 2018-10-16 03:29 | NUR ---
SHIFT SUMMARY PATIENT TRIED TO EXIT BED T/O SHIFT. ROMEO VEST RENEWED AND HOSPITALIST DR SPICER ADDED BILATERAL SOFT WRIST RESTRAINTS PULLING AT IV AND CORDS. AXOX 1 TO SELF. TAKES MEDS CRUSHED IN APPLE SAUCE OR WITH APPLE JUICE WITH LACTULOSE IN IT. DENIES PAIN, SOB, AND N/V. VSS. CALL LIGHT IN REACH. BED IN LOWEST POSITION. WILL CONTINUE TO MONITOR UNTIL DAY SHIFT NURSE ASSUMES CARE.
--- NOTE | 2018-10-16 04:30 | NUR ---
PATIENT HAVING INCREASED AGITATION. LEGS POSITIONED OVER THE SIDE RAIL. PATIENT YELLING AT STAFF WHEN REPOSITIONED. WILL CONTINUE TO MONITOR.
[2018-10-16 05:46] LABS: Anion Gap 7 mmol/L (6-16); Blood Urea Nitrogen 6 mg/dL (8-24); Bun/Creatinine Ratio 9.1 (12.0-20.0); CO2, Blood 25 mmol/L (21-32); Calcium, Blood 8.5 mg/dL (8.5-10.1); Chloride, Blood 111 mmol/L (98-108); Creatinine, Blood 0.66 mg/dL (0.60-1.20); Glomerular Filtration Rate >60 (60-); Glucose, Blood 100 mg/dL (70-99); Magnesium, Blood 1.8 mg/dL (1.6-2.4); Potassium, Blood 3.6 mmol/L (3.5-5.5); Sodium, Blood 143 mmol/L (136-145)
[2018-10-16 06:24] LABS: International Normalized Ratio 1.88; Prothrombin Time Results 18.8 Sec (9.7-11.5)
--- NOTE | 2018-10-16 14:51 | NUR ---
PATIENT WAS GETTING VERY AGITATED. HE HAS BEEN PLACED IN HIS BED AT THIS TIME AFTER HAVING AN FIBER DESIGNER TO GET HIM BACK TO BED. PATIENT IS VERY UNHAPPY ABOUT HIS RESTRAINTS AND MAKING COMMENTS ABOUT HOW HE IS GOING TO BE HANDCUFFED AND THE AMOUNT OF PEOPLE THAT HE HAS KILLED BEHIND BARS.
--- NOTE | 2018-10-16 18:01 | NUR ---
SHIFT SUMMARY PATIENT HAS BEEN VERBALLY ABUSIVE TODAY, WELL AGITATED. HE IS STILL IN HIS RESTRAINTS AND STILL VERY AGITATED. HE HAS FIGURED OUT HOW TO TAKE OFF HIS WRIST RESTRAINTS AND AT THIS TIME IS WITHOUT THEM.
--- NOTE | 2018-10-16 18:43 | NUR ---
PATIENT GETTING MUCH MORE AGITATED. SECURITY STANDBY WAS CALLED TO GET THE PATIENT BACK IN BED AND HIS ROMEO TIED. PATIENT IS CURRENTLY IN HIS ROMEO AND HIS WRIST RESTRAINTS. HE HAS LEARNED HOW TO UNTIE HIS ROMEO VEST AND NEEDS CONTINUED MONITORING.
--- NOTE | 2018-10-17 01:19 | NUR ---
DISCONTINUED ACTIVE ORDER FOR INVOLUNTARY HOLD PLACED ON September. INVOLUNTARY HOLD ON 10/15/09 PER MINE SHI PCI FROM [facility].
--- NOTE | 2018-10-17 03:12 | NUR ---
SHIFT SUMMARY PATIENT LESS AGITATED THIS SHIFT. NO ACUTE CHANGES OBSERVED. TAKES MEDICATION CRUSHED AND GIVEN IN APPLE JUICE WITH LACTULOSE. VSS/AFEBRILE. DENIES PAIN, SOB, AND N/V. PIV REMAINS INTACT. MUMBLED SPEECH. RESTRAINT MANAGEMENT. PATIENT NOT TRYING TO EXIT BED T/O SHIFT LIKE PREVIOUS NIGHT. CALL LIGHT IN REACH. BED IN LOWEST POSITION AND ALARM ACTIVATED. WILL CONTINUE TO MONITOR UNTIL DAY SHIFT NURSE ASSUMES CARE.
--- NOTE | 2018-10-17 09:55 | NUR ---
PT SLEEPING RR EVEN AND UNLABORED. HOLDING AM MEDS UNTIL AWAKE.
--- NOTE | 2018-10-17 16:45 | NUR ---
SECURITY CALLED TO BEDSIDE PT AGITATED AND YELLING AT TIMES. 2 MD HOLD OBTAINED. PT UNSTABLE ON HIS FEET BED AND CHAIR ALARM APPLIED. IV FLUIDS INFUSING.
--- NOTE | 2018-10-17 18:09 | NUR ---
PT SLEEPING RR EVEN AND UNLABORED.
--- NOTE | 2018-10-17 18:13 | NUR ---
SHIFT SUMMARY UNSTABLE WHEN STANDING. ETOH. ENCEPHALOPATHIC. INTERMITTENTLY AGGRESSIVE/COOPERATIVE WITH STAFF. INCONTINENT. MOTHER LIVES IN [place] AND IS PRIMARY DECISION MAKER. OX1. ABLE TO USE THE URINAL AT TIMES. 2 MD HOLD REINITIATED TODAY. DECONDITIONED. SLURRED SPEECH.
--- NOTE | 2018-10-18 03:28 | NUR ---
SHIFT SUMMARY PATIENT HAD NO ACUTE CHANGES OBSERVED THIS SHIFT. LESS AGITATION THIS SHIFT. TAKING LACTULOSE WITH APPLE JUICE AND MEDICATION CRUSHED. VSS/AFEBRILE. DENIES PAIN, SOB, AND N/V. MUMBLED SPEECH. PIV REMAINS INTACT. NS INFUSING AT 75 mL/HR. RESTRAINT MANAGEMENT. CALL LIGHT IN REACH. BED IN LOWEST POSITION AND ALARMED. WILL CONTINUE TO MONITOR UNTIL DAY SHIFT NURSE ASSUMES CARE.
[2018-10-18 05:33] LABS: Hematocrit 27.7 % (37.0-53.0); Hemoglobin 8.6 g/dL (13.5-17.5); Mean Corpuscular HGB 30.7 pg (26.0-34.0); Mean Corpuscular Volume 99 fL (80-100); Mean Platelet Volume 10.9 fL (9.1-12.4); Platelet Count 55 K/mm3 (150-400); RDW Standard Deviation 76.2 fL (35.1-46.3); White Blood Cell Count 2.47 K/mm3 (4.00-11.30)
[2018-10-18 05:48] LABS: Alanine Aminotransfer (ALT/SGP 37 U/L (12-78); Albumin, Blood 2.3 g/dL (3.4-5.0); Albumin/Globulin Ratio 0.5 (0.8-1.8); Alk Phos 124 U/L (50-136); Anion Gap 7 mmol/L (6-16); Aspartate Aminotrans (AST/SGOT 38 U/L (12-37); Bilirubin, Total 1.9 mg/dL (0.1-1.0); Blood Urea Nitrogen 8 mg/dL (8-24); Bun/Creatinine Ratio 13.3 (12.0-20.0); CO2, Blood 26 mmol/L (21-32); Calcium, Blood 8.2 mg/dL (8.5-10.1); Chloride, Blood 112 mmol/L (98-108); Globulin, Blood 4.6 g/dL (2.2-4.0); Glomerular Filtration Rate >60 (60-); Glucose, Blood 84 mg/dL (70-99); Potassium, Blood 3.5 mmol/L (3.5-5.5); Sodium, Blood 145 mmol/L (136-145); Total Protein, Blood 6.9 g/dL (6.4-8.2)
--- NOTE | 2018-10-18 11:24 | NUR ---
2 MD HOld discontinued by Dr. Houston. He also spoke with Hospiatlist. This 2nd Hold was initiated within the last several days.
--- NOTE | 2018-10-18 15:59 | NUR ---
SUMMARY PT HAS BEEN LETHARGIC/DROWSY, APPEARS WEAK/FATIGUED, GAIT UNSTEADY-2 ASSIST STAND-PIVOT TO CHAIR/BSC. HE IS CONFUSED, ORIENT TO SELF ONLY, MUMBLING NONSENSICAL SPEECH. HX ETOH/HEPATIC ENCEPHALOPATHY. AMMONIA ELEVATED @ 63 HOWEVER [id number]. IN RESTRAINT @ ONSET OF SHIFT, HE HAS BEEN CALM, FOLLOWING DIRECTION, RESTRAINTS D/C'D. VSS. HIS MOTHER HAS BEEN COMMUNICATING W MARQUITA & FOR SAFE D/C WHEN APPROP.
--- NOTE | 2018-10-18 16:58 | NUR ---
INCREASING AGITATION THIS AFTERNOON. PT EXTREMELY CONFUSED, VERY UNSTEADY GAIT. FREQUENTLY ATTEMPTING TO GET UP W/O ASSIST. PRN SEROQUEL 50MG GIVEN. ATTEMPT TO REDIRECT/REORIENT. WILL MX NEED FOR POSSIBLE RESTRAINT, ASTROCHEMIST UPDATED/NOTIFIED OF INCREASING RESTLESSNESS/AGITATION. PT ASSISTED TO BSC HOWEVER NO BM @ THIS TIME.
--- NOTE | 2018-10-19 06:40 | NUR ---
SHIFT SUMMARY PATIENT IN ROMEO VEST. PATIENT MUMBLES AND IS DIFFICULT TO UNDERSTAND. PATIENT IS A SBA. VERIFIED WITH CAMERA MONITOR PT IS VISUALIZED. PT DID HAVE A BM. PT SLEPT WELL THROUGHOUT THE NIGHT. VITALS STABLE. NO NEW CHANGES. PATIENT IS WEAK AND UNSTEADY. DOES NOT USE CALL LIGHT APPROPRIATELY.
[2018-10-19 15:46] LABS: Source, Urine Catheter
[2018-10-19 16:02] LABS: Blood, Urine Neg (Neg); Glucose Qualitative, Urine Neg (Neg); Ketones, Urine 2+ (Neg); Leukocyte Esterase, Urine 1+ (Neg); Nitrite, Urine Neg (Neg); Protein, Urine 2+ (Neg); Specific Gravity, Urine 1.025 (1.003-1.022); Urobilinogen, Urine 4+ (Normal)
[2018-10-19 16:11] LABS: Appearance, Urine Clear (Clear); Bilirubin, Urine 2+ (Neg); Color, Urine Yellow (P-Yellow)
[2018-10-19 16:12] LABS: Mucus Mod (0-Heavy); White Blood Cells, Urine 0-2 /hpf (0-5)
[2018-10-19 16:13] LABS: Bacteria Few /hpf; Squamous Epithelial Cells Not Seen /hpf (Few)
--- NOTE | 2018-10-19 16:15 | NUR ---
SUMMARY PT CONTINUES LETHARGIC, WEAK/FATIGUED, ANSWERS SIMPLE QUESTIONS APPROP HOWEVER MUMBLING SLOW SPEECH, DISPLAYS CONFUSION & MAKES BIZZARE STATEMENTS @ X'S. @ X'S BECOMES IRRITABLE/AGITATED. HE CONTINUES IN RESTRAINTS D/T HIGH FALL RISK, UNPREDICTABLE BEHAVIOR & ATTEMPTS UP W/O CALLING FOR ASSIST. DR MCKEON ADJUST SEROQUEL DOSE TODAY D/T LETHARGY. PT MOTHER CALL W CONCERNS, QUESTIONS ANSWERED & REFERRED TO MEDICAL OFFICE ASST FOR D/C PLAN. THIS AFTERNOON PT UNABLE TO VOID, BLADDER SCAN 1300, DR DAWSON ORDER PRIEST CATH, 14FR PLACED, 1100 DRK CLIVE URINE OUT IMMEDIATELY. VSS.
--- NOTE | 2018-10-20 03:18 | NUR ---
SHIFT SUMMARY PT AWAKE, AND GETTING OOB DURING SHIFT REPORT, EVEN THOUGH IN VEST RESTRAINT. PT CONFUSED/DISORIENTED. SPEECH GARBLED. PT IRRITABLE AND CURSING FOR UNKNOWN REASON. PT TX TO CHAIR DURING REPORT, USING GAIT BELT AND 2P ASSIST. PT IMPULSIVE AND VERY DIFFICULT TO REDIRECT. WILL NOT FOLLOW DIRECTIONS. IS UNABLE TO GET LEGS AND FEET TO MOVE OR ASSIST WITH TRANSFERING; SHUFFLES FEET WHEN MAKING ANY MOVEMENT. UNABLE TO BEAR WT HARDLY AT ALL. ADMITTED FOR ETOH ABUSE WITH ALCOHOLIC DEMENTIA. HX OF CIRRHOSIS, HEP C, AND PSORIASIS ON THE FACE. UP TO BSC FOR LOOSE STOOL, AFTER LACTULOSE GIVEN. PULLED PRIEST CATH STAT LOCK OFF; NEW STAT LOCK PLACED ATTEMPTED TO CONCEAL CATH TUBING WITH ATTENDS AND BOTTOMS, BUT PT CONSTANTLY PULLED AT THEM UNTIL HE GOT THEM OFF. PT REMAINED AWAKE AND RESTLESS FOR A WHILE AFTER MEDS GIVEN, BUT HAS SINCE BEEN ABLE TO GO TO SLEEP. RESTING QUIETLY WITH EYES CLOSED. CALL LT IN REACH. BED ALARM ON.
--- NOTE | 2018-10-20 12:59 | NUR ---
NURSE IN TO ADMINISTER FLUID BOLUS. WHEN NURSE ASKED PT TO SQUEEZE FINGERS, SHE FOLLOWED COMMANDS THOUGH CONTINUED TO APPEAR TO BE SLEEPING. PT MUMBLING QUIETLY. AND RESTLESS ARMS AT TIMES. FLUID BOLUS INFUSING PER ORDER AT THIS TIME
--- NOTE | 2018-10-20 18:24 | NUR ---
SHIFT SUMMARY PT AXO TO SELF BUT IS IRRITABLE AND AGGITATED THROUGHOUT THE SHIFT, WHEN AWAKE. PT REMAINS IN RESTRAINTS WHICH WERE RENEWED AT 1719. TEMP REMAINS ELEVATED AT 99.5, MEDICATED PER EMAR FOR PAIN IN HIS "BRAIN". PT'S MOTHER PRISCILLA CALLED THIS SHIFT, NURSE UTILIZED THERAPEUTIC COMMUNICATION AND ACTIVE LISTENING. VSS. NO OTHER CHANGES THIS SHIFT
--- NOTE | 2018-10-21 04:22 | NUR ---
SHIFT SUMMARY PT VERY RESTLESS AND AGITATED FOR MOST OF SHIFT TONIGHT. PT AWAKE MOST OF NIGHT TONIGHT SEROQUEL D/C'D PER PT'S MOTHER. PT FREQUENTLY OOB, SETTING OFF BED ALARM. PT ASSISTED TO CHAIR MULTIPLE TIMES WITH CHAIR ALARM IN PLACE. BUT PT CONSTANTLY TRIED TO GET OUT OF CHAIR, SETTING OFF ALARM AND GETTING MOSTLY OUT OF VEST RESTRAINT. PT TRIED TO SLIDE OUT OF CHAIR AND OUT OF VEST RESTRAINT. PT THEN ABLE TO GET CHAIR TO MOVE AND RIPPED CORDS OFF WALL TAKING CHAIR TO VILLARREAL. PT IS VERY IMPULSIVE AND ALMOST IMPOSSIBLE TO REDIRECT. SPEECH GARBLED. CAN BECOME IRRITABLE RATHER QUICKLY. PT VERY WEAK, STIFF, AND UNSTEADY. HARDLY ABLE TO BEAR ANY WT. DOES NOT FOLLOW ANY DIRECTIONS. REQUIRES ALOT OF HELP WITH PO INTAKE. PSORIASIS ON HEAD AND FACE. PT REMOVED SCD'S, INCREASED AGITATION. PT DID NOT WANT THEM BACK ON. BED ALARM ON FOR SAFETY. CALL LT IN REACH.
[2018-10-21 05:32] LABS: BASOPHILS PERCENT AUTO 0 % (0-2); EOSINOPHILS ABSOLUTE AUTO 0.06 K/mm3 (0.00-0.68); EOSINOPHILS PERCENT AUTO 2 % (0-6); Hematocrit 27.5 % (37.0-53.0); Hemoglobin 8.5 g/dL (13.5-17.5); IMMATURE GRAN ABSOLUTE AUTO 0.01 K/mm3 (0.00-0.10); IMMATURE GRAN PERCENT AUTO 0 % (0-1); LYMPHOCYTES ABSOLUTE AUTO 0.54 K/mm3 (0.84-5.20); LYMPHOCYTES PERCENT AUTO 22 % (21-46); MONOCYTES ABSOLUTE AUTO 0.38 K/mm3 (0.16-1.47); MONOCYTES PERCENT AUTO 15 % (4-13); Mean Corpuscular HGB 29.7 pg (26.0-34.0); Mean Corpuscular HGB Conc 30.9 g/dL (31.5-36.5); Mean Platelet Volume 11.4 fL (9.1-12.4); NEUTROPHILS PERCENT AUTO 60 % (41-73); Platelet Count 52 K/mm3 (150-400); RDW Coefficient Variation 20.4 % (11.7-14.2); Red Blood Cell Count 2.86 M/mm3 (4.30-5.90); White Blood Cell Count 2.49 K/mm3 (4.00-11.30)
[2018-10-21 05:37] LABS: Mean Corpuscular Volume 96 fL (80-100)
[2018-10-21 05:58] LABS: Alanine Aminotransfer (ALT/SGP 36 U/L (12-78); Albumin, Blood 2.1 g/dL (3.4-5.0); Albumin/Globulin Ratio 0.5 (0.8-1.8); Alk Phos 121 U/L (50-136); Anion Gap 7 mmol/L (6-16); Aspartate Aminotrans (AST/SGOT 38 U/L (12-37); Bilirubin, Direct 1.2 mg/dL (0.0-0.3); Bilirubin, Indirect 0.6 mg/dL (0.1-0.7); Bilirubin, Total 1.8 mg/dL (0.1-1.0); Blood Urea Nitrogen 7 mg/dL (8-24); Bun/Creatinine Ratio 12.9 (12.0-20.0); CO2, Blood 26 mmol/L (21-32); Calcium, Blood 8.2 mg/dL (8.5-10.1); Chloride, Blood 109 mmol/L (98-108); Creatinine, Blood 0.54 mg/dL (0.60-1.20); Globulin, Blood 4.3 g/dL (2.2-4.0); Glomerular Filtration Rate >60 (60-); Glucose, Blood 90 mg/dL (70-99); Magnesium, Blood 1.8 mg/dL (1.6-2.4); Potassium, Blood 3.5 mmol/L (3.5-5.5); Sodium, Blood 142 mmol/L (136-145); Total Protein, Blood 6.4 g/dL (6.4-8.2)
--- NOTE | 2018-10-21 05:58 | NUR ---
LAB IN TO OBTAIN BLOOD DRAW. PT BECAME IRRITABLE AND REFUSING. ATTEMPT TO EDU PT R/T NEEDED CARE. PT EVENTUALLY CO-OP WITH LAB DRAW.
--- NOTE | 2018-10-21 07:00 | NUR ---
ASSUMED CARE OF PT- PT SLEEPING AT CHANGE OF SHIFT. PER REPORT PT IS VERY IRRITABLE. PT WOKE EARLY IN THE SHIFT AND WAS ASSISTED TO THE CHAIR WHERE HE HAS BECOME MORE AGGITATED. WILL ATTEMPT TO MEDICATE PRN.
--- NOTE | 2018-10-21 12:06 | NUR ---
Attempted to visit with pt this afternoon. He is currently sleeping and no visitors are in his room at this time. Will attempt to return at a later time.
--- NOTE | 2018-10-21 17:40 | NUR ---
CALLED DR DAWSON- FOR A RENEWAL OF RESTRAINT ORDER LEFT A MESSAGE, WAITING FOR A CALL BACK.
--- NOTE | 2018-10-21 18:34 | NUR ---
SHIFT SUMMARY- PT HAS HAD NO SIGNIFICANT CHANGES T/O THE SHIFT. MEDICATED PRN FOR AGGITATION THIS MORNING, PT BECAME VERY TIRED AFTER MEDICATION WAS IN EFFECT. SPOKE TO DR MENDOZA DOSE WAS ADJUSTED. PT HAS BEEN AGITATED BUT COOPERATIVE THIS EVENING, CALLED DR DAWSON FOR A RENEWAL FOR RESTRAINT. CALLED BACK RESTRAINTS RENEWED. PT IS A HIGH FALL RISK WITH HIS AGGITATION, CONFUSION, WEAKNESS, AND FORGETFULLNESS. ROMEO VEST RESTRAINT CONTINUED FOR PT SAFETY.
--- NOTE | 2018-10-22 07:00 | NUR ---
ASSUMED CARE OF PT- RECIEVED REPORT FROM NIGHT RN LINDSAY. PER REPORT PT IS STILL EASILY AGGITATED BUT DID SLEEP FOR A WHILE LAST NIGHT. PT SEEMED TO BE RETAINING URINE BUT ONCE STAFF HAD ORDERS AND WERE PREPARED TO STRAIGHT CATH PT VOIDED INCONTINENTLY. PT INCONTINENT VOIDS ARE LARGE AMOUNTS SATURATING ALL BEDDING AND ATTENDS. WILL SPEAK TO DR DAWSON ON MORNING ROUNDS.
--- NOTE | 2018-10-22 07:11 | NUR ---
10/22/18 0420 ATTEMPTED TO VOID IN URINAL TWICE BUT UNABLE. BLADDER SCAN = 673 ML. ABDOMEN FIRM. RN INITIATED BLADDER SCAN/ST. CATH PROTOCOL. RN RETURNED TO ROOM AT 0450 AND PT WAS INCONTINENT OF LARGE AMT OF YELLOW URINE. ABDOMEN SOFTER. NO NEED TO CATH AT THIS TIME. GIVEN SODA TO DRINK PER REQUEST. ROMEO VEST ON HE CONTINUES TO GET UP WITHOUT CALLING EVEN WHEN RE-DIRECTED.
--- NOTE | 2018-10-22 10:45 | NUR ---
SPOKE TO DR DAWSON ON MORNING ROUNDS. PT HAS TRIED TO VOID SEVERAL TIMES AND WHEN WENT IN TO SEE THE PT HE HAD VIDED INCONTINENTLY. IS AWARE, SEE EMAR FOR MEDICATION CHANGE. WILL CTM, BLADDER SCAN PRN.
--- NOTE | 2018-10-22 19:35 | NUR ---
SHIFT SUMMARY- PT HAS HAD NO ACUTE CHANGE T/O THE SHIFT, HE HAD AN INCONTINENT VOID EARLY THIS MORNING, SEEMED TO BE CONSTIPATED SO STAFF WALKED HIM SEVERAL TIMES T/O THE SHIFT AND PT TOOK ALL DOSES OF LACTULOSE. PT HAD A LARGE BM AT THE END OF THE SHIFT. PT STILL IN THE ROMEO RESTRAINT, STILL CONFUSED AND ATTEMPTING TO GET UP, DOES NOT UNDERSTAND WHERE HES IS OR WHAT IS HAPPENING, NO-REDIRECTABLE. OT PROVIDED THE PT WITH CRAYONS AND COLORING PAPERS, PT COLORED FOR A FEW MINUTES TODAY.
--- NOTE | 2018-10-23 04:13 | NUR ---
SHIFT SUMMARY: PT IS ALERT AND ORIENTED TO SELF. PT DOES NOT CALL APPROPRIATELY, HAS UNSTEADY GAIT, FALL RISK, IN VEST RESTRAINT. PT IS A 1-2 PERSON ASSIST FOR TRANSFERS. PT INCONTINENT ONCE OVERNIGHT, LINEN CHANGE. PT DENIES PAIN, NAUSEA, VOMITING, AND SOB. PT SLEPT INTERMITTENTLY THROUGHOUT THE NIGHT. NO ACUTE CHANGES THIS SHIFT. WILL REPORT TO DAY NURSE.
--- NOTE | 2018-10-23 14:08 | NUR ---
pt was momentarily un restrained and taken for a walk the pt was a little irritated at time however was mostly cooperative
--- NOTE | 2018-10-23 16:55 | NUR ---
PT IS ALERT, ORIENTED TO SELF, PLACE AND FAMILY, THE PT WAS UP TO THE CHAIR AND TO THE SIDE OF THE BED FOR MOST OF THE DAY, THE PT WAS UP IN THE VILLARREAL AMBULATING WITH THE PHYSICAL THERAPIST THIS AM AND EITH THE NURSE THIS AFTERNOON, USEING THE FWW, WITH CONSTANT DIRECTION AND REORIENTING, THIS LATE AFTERNOON THE PT WAS MORE RESTLESS AND UNABLE TO PEE, BLADDER SCAN FOUND THAT THE PT WAS RETAINING OVER 900 CC, DR. DAWSON GAVE ORDER TO STAIGHT CATH, THE PT TOLERATED THE PROCEDURE WELL APROX 750CC WAS DRAINED, PT REMAINS IN A ROMEO VEST FOR HIS SAFETY, CALL LIGHT IN REACH BED ALARM ON, WILL CONTINUE TO MONITOR AND ASSESS FOR CHANGES
[2018-10-24 04:44] LABS: BASOPHILS ABSOLUTE AUTO 0.01 K/mm3 (0.00-0.23); BASOPHILS PERCENT AUTO 0 % (0-2); EOSINOPHILS ABSOLUTE AUTO 0.03 K/mm3 (0.00-0.68); EOSINOPHILS PERCENT AUTO 1 % (0-6); Hematocrit 27.6 % (37.0-53.0); Hemoglobin 8.5 g/dL (13.5-17.5); IMMATURE GRAN ABSOLUTE AUTO 0.01 K/mm3 (0.00-0.10); IMMATURE GRAN PERCENT AUTO 0 % (0-1); LYMPHOCYTES ABSOLUTE AUTO 0.57 K/mm3 (0.84-5.20); LYMPHOCYTES PERCENT AUTO 20 % (21-46); MONOCYTES ABSOLUTE AUTO 0.45 K/mm3 (0.16-1.47); MONOCYTES PERCENT AUTO 16 % (4-13); Mean Corpuscular HGB 29.6 pg (26.0-34.0); Mean Corpuscular HGB Conc 30.8 g/dL (31.5-36.5); Mean Corpuscular Volume 96 fL (80-100); Mean Platelet Volume 9.9 fL (9.1-12.4); NEUTROPHILS ABSOLUTE AUTO 1.75 K/mm3 (1.96-9.15); NEUTROPHILS PERCENT AUTO 62 % (41-73); Platelet Count 54 K/mm3 (150-400); RDW Coefficient Variation 20.1 % (11.7-14.2); RDW Standard Deviation 71.5 fL (35.1-46.3); Red Blood Cell Count 2.87 M/mm3 (4.30-5.90); White Blood Cell Count 2.82 K/mm3 (4.00-11.30)
[2018-10-24 05:02] LABS: Alanine Aminotransfer (ALT/SGP 32 U/L (12-78); Albumin, Blood 2.4 g/dL (3.4-5.0); Albumin/Globulin Ratio 0.5 (0.8-1.8); Alk Phos 125 U/L (50-136); Anion Gap 6 mmol/L (6-16); Aspartate Aminotrans (AST/SGOT 42 U/L (12-37); Bilirubin, Direct 1.2 mg/dL (0.0-0.3); Bilirubin, Indirect 0.5 mg/dL (0.1-0.7); Bilirubin, Total 1.7 mg/dL (0.1-1.0); Blood Urea Nitrogen 6 mg/dL (8-24); Bun/Creatinine Ratio 10.8 (12.0-20.0); CO2, Blood 26 mmol/L (21-32); Calcium, Blood 8.2 mg/dL (8.5-10.1); Chloride, Blood 109 mmol/L (98-108); Creatinine, Blood 0.56 mg/dL (0.60-1.20); Globulin, Blood 4.6 g/dL (2.2-4.0); Glomerular Filtration Rate >60 (60-); Glucose, Blood 87 mg/dL (70-99); Potassium, Blood 3.6 mmol/L (3.5-5.5); Sodium, Blood 141 mmol/L (136-145)
--- NOTE | 2018-10-24 05:49 | NUR ---
SUMMARY: NO ACUTE CHANGE VSS. PT HAS BEEN ATTEMPTING OOB THE MAJORITY OF THE NIGHT. UPON ASSESSMENT AT SHIFT START PT HAD PULLED 2 IV'S AND TORE THROUGH HIS ROMEO VEST TO SIT AT THE EDGE OF BED. OLD IV SITES WNL AND NEW IV RESTARTED. PT IS ORIENTED TO SELF ONLY, FOLLOWS DIRECTIONS BUT HAS NONSESICAL TALK AND ONLY ANSWERS SOME QUESTIONS. PT ABLE TO VOID WHILE STANDING, AND THEN LATER HAD RETENTION. PT NEEDED A STRIAGHT CATH AFTER A BLADDER SCAN SHOWED >800 AT ABOUT 0230, ALTHOUGH ONLY 300ML WAS DRAINED. PT ABLE TO SLEEP BETTER AFTER STRAIGHT CATHED. CONTINUES TO NEED ROMEO VEST AND WRIST RESTRAITS FOR OWN SAFETY, VERY UNSTEAD ON FEET AND GETS UP EASILY IF NOT RESTAINED. NO BM TONIGHT, AND SLIGHT TREMORS NOTED, ATIVAN GIVEN. WILL CTM AND REPORT TO DAY RN
--- NOTE | 2018-10-24 16:30 | NUR ---
pt voided ASSITED THE PT TO THE BATHROOM, THE PT WAS NOT ABLE TO FOLLOW INSTRUCTIONS REGARDING SITTING ON THE TOILET AND VOIDED A LARGE AMOUNT OF BRIGHT YELLOW URINE ONTO THE FLOOR AND INTO HIS ATTENDS, THE PT WAS ASSISTED INTO THE SHOWER IMEDIATLY AFTER
--- NOTE | 2018-10-24 16:39 | NUR ---
PT A/OX2, HAS GARBELED SPEECH AND IS NONSENSICAL AT TIMES, THIS AM THE PT WAS QUITE RESTLESS AND AGITATED, ATIVAN WAS GIVEN, THE PT REMAINS IN A VEST RESTRAINT, FOR WOST OF THE DAY THE PT FOUGHT AT HIS RESTRAINT AND MUMBLED UNDER HIS BREATH, THE PT WAS GIVEN FLUIDS T/O THE DAY, THIS AFTERNOON THE PT WAS ASSISTED TO THE BATHROOM, WAS UNABLE TO FOLLOW DIRECTIONS AND VOIDED A LARGE AMOUNT OF URINE ALL OVER THE FLOOR AND HIMSELF, THE PT WAS ASSITED TO THE SHOWER AND CLEANED UP, THEN ASSISTED BACK TO HIS BED, THE PT HAS BEEN PASSING GAS T/O THE DAY, HOWEVER NO BM EVEN THOUGH HE HAS BEEN COMPLIANT WITH TAKING HIS LACTULOSE, VEST RESTRAINT ON WILL CONTINUE TO MONITOR AND ASSESS FOR CHANGES
--- NOTE | 2018-10-25 04:23 | NUR ---
LATE ENTRY 0061 10/24/18 BECAME VERY AGITATED AT THIS TIME; TRYING TO GET OOB AND PULLING AT VEST RESTRAINT. PATIENT DISROBING AND PULLED OUT IV; PRESSURE DRESSING PLACED. ROMEO VEST WAS TOO LARGE FOR PATIENT; PLACED APPROPRIATE SIZE. CURRENTLY SITTING AT SIDE OF BED. TM.
--- NOTE | 2018-10-25 04:31 | NUR ---
SHIFT SUMMARY ALERT TO SELF; AT TIMES ANSWERS IN 1-2 WORD SENTENCES, BUT ALL OTHER TIMES MUMBLES INCOHERENTLY WITH NONSENSICAL SPEECH. OFFERED PO FLUIDS PERIODICALLY. MEDS IN APPLESAUCE. BLADDER SCANNED 2340; STATED 581. PATIENT DENIED NEED TO VOID. SPOKE TO PUNCH CARD OPERATOR, HE SAID THAT HE WOULD WAIT TO STRAIGHT CATH R/T EXCESS FLUID IN THE ABDOMEN. VEW SCORE OF 4. WHEN VITALS WERE RE-CHECKED YEILDED VEW OF 1. IM HALDOL SHOT GIVEN THIS AM R/T AGITATION; PATIENT SHORTLY AFTER RESTING. BED IN LOWEST POSITION. ALARM ON. ROMEO AND WRIST RESTRAINTS IN PLACE. WCTM. REPORT TO ONCOMING RN.
--- NOTE | 2018-10-25 12:05 | NUR ---
SHIFT ASSESSMENT COMPLETED AT 0800. STRAIGHT CATHED AT 0830 FOR BLADDER SCAN GREATER THAN 700ML. 1000 PT WITH INCREASING AGITATION, SITTING IN CHAIR CONTINUOUSLY ATTEMPTING TO STAND UP PULLING AGAINST ROMEO VEST RESTRAINT. PT OFFERED TOILETING, FLUIDS, REPOSITIONING, PT UNABLE TO VOICE NEEDS, PRN HALDOL GIVEN IM. 1200 PT ASSISTING BACK TO BED, EYES CLOSED, APPEARS TO BE SLEEPING.
--- NOTE | 2018-10-25 17:33 | NUR ---
SHIFT SUMMARY. ALERT THIS SHIFT, HIGHLY AGITATED DURING BEGINING OF SHIFT, PRN IM HALDOL GIVEN, PT CONTINUED WITH AGITATION FOR NEXT HOUR OR TWO THEN CALMED DOWN AND SLEPT FOR 2-3 HOURS IN BED. AFTER PT AWOKE THIS AFTERNOON, HE WAS NOT AGITATED, MORE CALM, STILL ATTEMPTING TO GET OOB, PULLING AT ROMEO VEST AND ATTEMPTING TO TAKE ROMEO VEST OFF. PT ASSISTED WITH ALL MEALS BY WHIPPED TOPPING FINISHER, GOOD MEAL INTAKE. NO S/SX OF DISCOMFORT DURING SHIFT.
--- NOTE | 2018-10-25 19:40 | NUR ---
SHIFT CHANGE PATIENT PULLED OFF ATTENDS AND STARTED TO URINATE ON THE BED, POSI VEST WAS IN PLACE. PATIENT ORIENTED TO SELF ONLY, CONFUSED AND WITH GARBLED SPEECH. HE WAS COOPERATIVE BUT DIFFICULT TO DIRECT AT TIMES. LUNG SOUNDS ARE CLEAR, HR REGULAR DENIED ANY PAIN OR DISCOMFORT. URINE GOOD AMOUNT, ASSISTED ASSEMBLER SANDAL PARTS IN CHANGING BED, UNTIL SECOND ASSEMBLER SANDAL PARTS ARRIVED. ASSESSMENT WAS BENIGN OF ANY FINDINGS OF CONCERN.
--- NOTE | 2018-10-25 20:15 | NUR ---
CALLED HOSIPITALIST FOR UPDATED RESTRAINT ORDER. RECEIVED WITH ADDED 4 RAIL TO ORDER. INFORMED OF NO IV PATIENT PULLED OUT, ASKED FOR NO IV ACCESS ORDER. HE DENIED IT STATES HE NEEDS TO HAVE AN IV IN CASE OF A CODE. DENIED GIVING ANY OTHER MEDS FOR HIS MENTAL STATUS. RESTRAINT ORDER PLACED.
--- NOTE | 2018-10-26 00:02 | NUR ---
TOWER WATCHMAN CALLED REPORTED PATIENT WAS OUT OF HIS POSI VEST. HE HAD THE VEST AROUND HIS ANKLES, BED WAS WET. CHANGED BED AND LININ, AND PLACED NEW POSI VEST. RESTRAINTS CHECKED.
--- NOTE | 2018-10-26 04:08 | NUR ---
STRAIGHT CATH PATIENT DUE TO BLADDER SCAN OF 790, POST VOID. CATHETER INSERTION DONE PER ORDER AND PATIENT VOIDED 625 YELLOW URINE. CLEAR.
[2018-10-26 05:44] LABS: BASOPHILS ABSOLUTE AUTO 0.01 K/mm3 (0.00-0.23); BASOPHILS PERCENT AUTO 0 % (0-2); EOSINOPHILS ABSOLUTE AUTO 0.04 K/mm3 (0.00-0.68); EOSINOPHILS PERCENT AUTO 2 % (0-6); Hematocrit 28.9 % (37.0-53.0); Hemoglobin 9.1 g/dL (13.5-17.5); IMMATURE GRAN ABSOLUTE AUTO 0.01 K/mm3 (0.00-0.10); IMMATURE GRAN PERCENT AUTO 0 % (0-1); LYMPHOCYTES ABSOLUTE AUTO 0.61 K/mm3 (0.84-5.20); LYMPHOCYTES PERCENT AUTO 24 % (21-46); MONOCYTES ABSOLUTE AUTO 0.43 K/mm3 (0.16-1.47); MONOCYTES PERCENT AUTO 17 % (4-13); Mean Corpuscular HGB 30.1 pg (26.0-34.0); Mean Corpuscular HGB Conc 31.5 g/dL (31.5-36.5); Mean Corpuscular Volume 96 fL (80-100); Mean Platelet Volume 10.7 fL (9.1-12.4); NEUTROPHILS ABSOLUTE AUTO 1.46 K/mm3 (1.96-9.15); NEUTROPHILS PERCENT AUTO 57 % (41-73); Platelet Count 53 K/mm3 (150-400); RDW Coefficient Variation 19.9 % (11.7-14.2); RDW Standard Deviation 70.6 fL (35.1-46.3); Red Blood Cell Count 3.02 M/mm3 (4.30-5.90); White Blood Cell Count 2.56 K/mm3 (4.00-11.30)
--- NOTE | 2018-10-26 05:53 | NUR ---
SHIFT SUMMARY: PATIENT WAS PLEASANT AT BEGINNING OF THE SHIFT, COOPERATIVE, DID ATTEMPT TO GET OUT OF BED SEVERAL TIMES BUT WAS EASILY REDIRECTED. HE TOOK HIS PILLS WITH OUT NO PROBLEMS EXCEPT HIS LACTOLOSE, WHICH HE ONLY TOOK HALF. HE DID URINATE VERY WELL AT BEGINING OF THE SHIFT BUT AFTER THAT NO VOID, HE SLEPT FOR SHORT PERIOD OF WHILE. CALLED HOSPITALIST FOR RESTRAINT ORDER, HE WANTED IV TO BE RE-INSERTED. THEREFORE LATER WHEN HE CALMED DOWN, STARTED 20G IV IN LEFT AC. IT WAS NOTICED THAT HE STILL HAD NOT VOIDED AND BLADDER SCAN SHOWED 790, STRAIGHT CATH WAS PERFORMED, 625 WAS OBTAINED, HAD TO GIVE HIM ATIVAN AFTER THIS, IT DID NOT HELP TO CALM THE AGGRESSION THAT STARTED. WAITED FOR A WHILE UNITL HE STARTED YELLING, CUSSING AND NEEDED TO GIVE HIM HALDOL FOR TO CALM THAT DOWN. HE IS NOW CALMING DOWN AND WATCHING TV. WILL REPORT TO ONCOMING SHIFT.
[2018-10-26 05:57] LABS: International Normalized Ratio 1.9
[2018-10-26 05:59] LABS: Anion Gap 5 mmol/L (6-16); Blood Urea Nitrogen 5 mg/dL (8-24); CO2, Blood 26 mmol/L (21-32); Calcium, Blood 8.3 mg/dL (8.5-10.1); Chloride, Blood 111 mmol/L (98-108); Creatinine, Blood 0.55 mg/dL (0.60-1.20); Glomerular Filtration Rate >60 (60-); Glucose, Blood 86 mg/dL (70-99); Potassium, Blood 3.4 mmol/L (3.5-5.5); Sodium, Blood 142 mmol/L (136-145)
[2018-10-26] MEDS ORDERED: ACET325 PO (14:12)
[2018-10-26] MEDS ORDERED: BENZ2 PO (14:16)
[2018-10-26] MEDS ORDERED: Haldol 5 mg Tab5 MG PO (14:29)
[2018-10-26] MEDS ORDERED: Haloperidol2 MG/1 ML PO (14:29)
[2018-10-26] MEDS ORDERED: LACT10SY PO (14:30)
[2018-10-26] MEDS ORDERED: NEOM500 PO (14:32)
[2018-10-26] MEDS ORDERED: TAMS.4ER PO (14:33)
[2018-10-26] MEDS ORDERED: RISPERIDONE PO (14:33)
--- NOTE | 2018-10-26 15:16 | NUR ---
1440 PT DISCHARGED HOME VIA PERSONAL VEHICLE ACCOMPANIED AND DRIVEN BY MOTHER DANIEL. PT ESCORTED TO FACILITY ENTRANCE BY THIS RN AND DISHWASHER BUSSER VIA W/C, PT ASSISTED INTO VEHICLE. IV REMOVED. D/C PAPERWORK REVIEWED WITH PT, MOTHER AND COPY PROVIDED. NEW RX CALLED INTO [facility] PER MOTHERS REQUEST.
== END 2018-10-26 14:43 | disposition home or self-care (01) | DRG 56 ==
LOC: ER 14:45 → PCU 17:57 → MEDS 17:57 → ICUE 17:57 → MEDS 10-06 11:45 → ICUW 10-07 14:35 → MEDS 10-11 10:27
PROVIDERS: Family Medicine; Hospitalist; Physician Assistant; ADMIT Internal Medicine
DX: G31.2 Degeneration of nervous system due to alcohol (principal); G92 Toxic encephalopathy; F10.239 Alcohol dependence with withdrawal, unspecified; D61.818 Other pancytopenia; E72.20 Disorder of urea cycle metabolism, unspecified; F10.27 Alcohol dependence with alcohol-induced persisting dementia; K72.90 Hepatic failure, unspecified without coma; K70.30 Alcoholic cirrhosis of liver without ascites; R00.0 Tachycardia, unspecified; B19.20 Unspecified viral hepatitis C without hepatic coma; Z59.0 Homelessness; R45.87 Impulsiveness; F02.80 Dementia in other diseases classified elsewhere, unspecified severity, without behavioral disturbance, psychotic disturbance, mood disturbance, and anxiety
CPT/HCPCS: 36415; 51702; 70450; 76705; 80048; 80053; 80069; 80076; 81001; 81003; 82140; 82272; 82947; 83690; 83735; 84100; 84478; 85025; 85027; 85610; 92523; 93005; 93010; 96365; 96366; 96375; 97110; 97112; 97116; 97162; 97166; 97530; 97535; 99285-25; A9270; C9113; G0515; J1630; J2060; J2405; J3411; J3475; J7030; J7040; J7042